=== PATIENT | male | born 1945 | race Caucasian/White ===

== ENCOUNTER 2017-01-13 17:43 | Inpatient (IN) | payer MEDICARE ==
[~2017-01-13] VITALS: Ht 177.8 cm; Wt 82.6 kg
[~2017-01-13 17:43] MED LIST: ASPI-628 PO; ATEN25TA PO; ATOR40TA69 PO; CITA20TA PO; HYDR12.5 PO; NIAC250T8 PO; NIAC500T7 PO; OMEG500C PO; OMEP-113 PO; WARF2.5T82 PO; WARF5TAB7 PO
[2017-01-13 18:02] VITALS: BP 107/61; PULSE 56; RESP 14; O2SAT 96
[2017-01-13 19:10] LABS: BASOPHILS % (AUTO) 0.8 % (0-3); MONOCYTES % (AUTO) 11.6 % (4-12); Mean Corpuscular Hemoglobin 30.9 pg (27.0-35.0); Mean Corpuscular Volume 97.8 fL (81-100); NEUTROPHILS % (AUTO) 63.3 % (40-74); Platelet Count 167 bil/L (150-400)
[2017-01-13 19:47] LABS: INR 5.55 ratio
--- NOTE | 2017-01-13 19:49 | ED.REPORT ---
HPI- Male Date of Service Jan 13, 2017 ED Provider: Bradley Rodriguez MD This is a 71-year-old male who is on warfarin for a mechanical aortic valve replacement he presents with 2-1/2 days of gross hematuria. He called the [facility] today and was advised to come to the emergency department. He reports his INRs are generally been steady, he has had no recent difficulties, he had blood drawn yesterday but does not know the results. Reports he had no adjustments on his prior blood draw in the past. He feels a little lightheaded when standing, but denies any pain, has not been passing any clots, he denies any dysuria. He reports that he did have trace hematuria he thinks about 5 years ago he saw urologist is in [place] reports a negative urology evaluation with cystoscopy at that time. He denies any other bleeding, denies any blood in the stools. He has no additional complaints. Is any recent antibiotics, medication changes, dietary changes were clear identifiable cause for an elevated INR. Nursing Notes Stated Complaint: HEMATURIA Chief Complaint: Male Abdominal Pain Nursing Notes Reviewed: Yes (BlogCN not reconciled) Allergies: Coded Allergies: codeine (Verified Allergy, Unknown, 08/01/14) can't pee Scheduled Aspirin (Aspir 81) 81 Mg Tablet. 81 MG PO DAILY Atenolol (Atenolol) 50 Mg Tablet 50 MG PO DAILY Calcium Carbonate/Vitamin D3 (Calcium 600 + Vit D Tablet) 1 Each Tablet 1 EACH PO DAILY Citalopram Hydrobromide (Celexa) 20 Mg Tablet 20 MG PO DAILY Cyanocobalamin (Vitamin B-12) (Vitamin B-12) 1,000 Mcg Tab.subl 1,000 MCG SL DAILY Doxylamine Succinate (Unisom) 25 Mg Tablet 75 MG PO HS Isosorbide MN ER (Isosorbide MN ER) 30 Mg Tab.er.24h 30 MG PO DAILY Multivitamin with Minerals (Totalday Multiple) 1 Each Tablet.er 1 EACH PO DAILY Niacin (Niacin) 500 Mg Tablet 750 MG PO HS Bock-3 Fatty Acids (Fish Oil) 500 Mg Capsule. 1,000 MG PO BID Omeprazole (Omeprazole) 20 Mg Capsule. 20 MG PO BID Prazosin (Prazosin) 1 Mg Capsule 3 MG PO HS Rosuvastatin Calcium (Rosuvastatin Calcium) 40 Mg Tablet 40 MG PO DAILY Warfarin Sodium (Warfarin Sodium) 5 Mg Tablet 5 MG PO Boss,Mo,,,Sa Warfarin Sodium (Warfarin Sodium) 2.5 Mg Tablet 2.5 MG PO Mon, Mon General Time Seen by MD: 19:36 Chief Complaint Other (hematuria) Hx Obtained From: Patient Arrived By: Walk-in Onset Occurred: 1 day ago Symptom Duration: Since onset Recent Healthcare: Recent doctor visit Similar Sx Previous: Yes Past Medical History Past Medical History Notes: See medication list provided by the [place] Past Medical History Mechanical aortic valve on warfarin Reports: Coronary artery disease, GERD, Hyperlipidemia, Hypertension, Peptic ulcer disease Past Surgical History mechanical aortic valve Five-vessel bypass Prior cystoscopy years ago Reports: CABG Smoking History Unknown if Ever Smoker Social History Alcohol Use: Denies alcohol use Drug Use: Denies drug use Ambulatory Status Independent Review of Systems GI: Denies: Hematochezia Male: Reports Hematuria, Denies Dysuria Complete sys rev & neg: except as marked. Neurologic: Reports: Lightheaded Physical Exam Initial Vital Signs Vital Signs (First) Date Time Temp Pulse Resp B/P Pulse Ox O2 Delivery O2 Flow Rate FiO2 01/13/17 18:02 36.8 56 14 107/61 96 Room Air Initial VS: Reviewed Head / Eyes: Atraumatic, Normocephalic, PERRL ENT: Mucous membranes moist, Conjunctiva normal, No scleral icterus Neck: Supple, Non-tender, Full range of motion Respiratory: Breath sounds normal, Clear to auscultation, No respiratory distress Abdomen / GI: Soft, Non-tender, No guarding, No rebound, No distention Back: No CVA tenderness Extremities: Vascular intact, Neuro intact, No swelling, No tenderness Skin: Warm, Dry, No cyanosis Neurologic: Alert, Oriented, Nonfocal Psychiatric: Mood/affect normal, Behavior normal, Normal thought content Male Genitourinary: Atraumatic, Inspection NL General/Constitutional: Awake, Alert, No acute distress, Well appearing, Well developed not pale Cardiovascular: Heart rate NL, Regular rhythm, Heart sounds NL, No gallop, No rubs Heart Sounds / Murmur: Positive: Murmur present... (mechanical) Lower Ext Edema: Negative: Bilateral 1+ mechanical murmur not tachycardic Interpretation & Diagnostics Lab Results Interpretation Result Diagram: 01/13/17184401/13/171844 Test 01/13/17 18:45 01/13/17 19:10 White Blood Count 5.0th/mm3 (3.8-10.1) Red Blood Count 4.04mil/mm3 (4.40-5.80) Hemoglobin 12.5g/dL (13.8-17.2) Hematocrit 39.5% (41.0-50.0) Mean Corpuscular Volume 97.8fL (81-100) Mean Corpuscular Hemoglobin 30.9pg (27.0-35.0) Mean Corpuscular Hemoglobin Concent 31.6% (32.0-37.0) Red Cell Distribution Width 13.9% (12.3-15.4) Platelet Count 167bil/L (150-400) Neutrophils (%) (Auto) 63.3% (40-74) Lymphocytes (%) (Auto) 20.1% (14-46) Monocytes (%) (Auto) 11.6% (4-12) Eosinophils (%) (Auto) 4.0% (0-5) Basophils (%) (Auto) 0.8% (0-3) Prothrombin Time 61.5sec (8.1-12.5) Prothromb Time International Ratio 5.55ratio Sodium Level 140mEq/L (134-144) Potassium Level 4.7mEq/L (3.5-5.2) Chloride Level 102mEq/L (97-108) Carbon Dioxide Level 28mmol/L (18-29) Blood Urea Nitrogen 13mg/dL (8-27) Creatinine 0.89mg/dL (0.76-1.27) Estimat Glomerular Filtration Rate 89mL/min (>59) Glucose Level 107mg/dL (60-99) Calcium Level 8.4mg/dL (8.5-10.1) Total Bilirubin 0.4mg/dL (0.0-1.2) Aspartate Amino Transf (AST/SGOT) 27U/L (0-50) Alanine Aminotransferase (ALT/SGPT) 10U/L (0-44) Alkaline Phosphatase 69U/L (25-160) Total Protein 6.9g/dL (6.4-8.4) Albumin 3.9g/dL (3.4-5.0) Urine Color Bloody (YELLOW) Urine Appearance Cloudy (CLEAR,HAZY) Urine pH (5.0-8.0) Urine Specific [place] 1.025 (1.003-1.035) Urine Protein mg/dL (NEG,TRACE) Urine Glucose (UA) mg/dL (NEGATIVE) Urine Ketones mg/dL (NEGATIVE) Urine Occult Blood (NEGATIVE) Urine Nitrite (NEGATIVE) Urine Bilirubin (NEGATIVE) Urine Urobilinogen mg/dL (NORMAL) Urine Leukocyte Esterase (NEGATIVE) Urine RBC Packed/hpf (0-2) Urine WBC 0-5/hpf (0-5) Urine Epithelial Cells Occasional/hpf (NONE-MOD) Urine Crystals None seen (NONE SEEN) Urine Bacteria None/hpf (NONE-FEW) Urine Hyaline Casts None/lpf (NONE) Urine Granular Casts None seen (NONE SEEN) Urine Waxy Casts None seen (NONE SEEN) Urine Red Blood Cell Casts None seen (NONE SEEN) Urine White Blood Cell Casts None seen (NONE SEEN) Urine Mucus None seen (None Seen) Urine Trichomonas None seen (NONE SEEN) Urine Yeast None (NONE SEEN) Urinalysis Comment Color interference Urine Culture Reflexed Not indicated Lab Results Interpretation: CBC Normal CMP normal INR Supratherapeutic Re-Eval/Medical Decision Med Decision/Clinical Course This is a 71-year-old male on warfarin for a mechanical valve who presents with a half days of ongoing gross hematuria. This was referred in by the [facility]. He reports that many years ago he underwent cystoscopy for hematuria with no pathology identified. He reports his INRs are generally been quite stable and reports no medication changes are clear reasons to suspect them out from abnormal range of INR. He has not taken today's evening dose of 2.5 mg. He also normally takes aspirin 81 mg twice a day, has not taken in the past day or 2. He reports feeling slightly dizzy at times, reports very mild. He is not actually mechanically orthostatic by vital sign criteria. He appears well, he has no pallor, he has mechanical burn, his abdomen is soft nontender. He does have gross hematuria, but is not passing clots and reports no difficulty urinating. Blood work is notable for normal hematocrit, but a supratherapeutic INR. The patient I will again does have a mechanical valve necessitating careful management he requires ongoing anticoagulation due to his high risk. Therefore formally consult pharmacy for their recommendations and assistance, please see their suggestions regarding the use of low-dose vitamin K and careful monitoring I consult urology Dr. Mckenzie who will follow the patient, and he requested when possible to obtain a CT IV P, which was done, with no cause of hematuria identified. The patient's been typed and crossed, but is not require emergent transfusion at this time. Given his anticoagulated status, and need for careful monitoring given the mechanical valve he is being admitted. The case is discussed with the hospitalist. Source of Hx: Old records Consultation : Consulted With: Urology (Dr. 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 I, Dr. Rodriguez, personally performed the history, physical exam, and medical decision-making: I reviewed and confirmed the accuracy for the information in the transcribed note. Signed by: fabiola Butts, 01/13/17 2100 copies to: Nino Rivera MD, Matthew F MD Jan 13, 2017 19:49 LATRICIA PADILLA Jan 13, 2017 20:27
[2017-01-13 21:05] VITALS: RESP 18; O2SAT 97
[2017-01-13 21:05] LABS: APPEARANCE,URINE CLOUDY (CLEAR,HAZY); COLOR,URINE BLOODY (YELLOW)
[2017-01-13] MEDS ORDERED: ROSU40TA20 PO (21:13)
[2017-01-13] MEDS ORDERED: ATEN50TA PO (21:13)
[2017-01-13] MEDS ORDERED: ISOS30TA4 PO (21:13)
[2017-01-13] MEDS ORDERED: PRAZ1CAP2 PO (21:13)
[2017-01-13] MEDS ORDERED: OMEP20CA11 PO (21:14)
[2017-01-13] MEDS ORDERED: MULT-620 PO (21:18)
[2017-01-13] MEDS ORDERED: CALC-243 PO (21:18)
[2017-01-13] MEDS ORDERED: CYAN100017 SL (21:18)
[2017-01-13] MEDS ORDERED: DOXY25TA46 PO (21:18)
--- NOTE | 2017-01-13 21:19 | DRSVH ---
PROCEDURE: CT ABDOMEN PELVIS W&WO CONTRAST IVP PROTOCOL INDICATIONS: Gross hematuria, requested by Dr. Mckenzie TECHNIQUE: Optional 5 mm thick noncontrast images acquired from the diaphragm to the symphysis pubis. After the administration of intravenous contrast, 5 mm thick images acquired from the diaphragm to the symphys is pubis after a 10-minute delay. 2 mm thick coronal and sagittal reformats were then performed of t he kidneys and ureters. For radiation dose reduction, the following was used: automated exposure co ntrol, adjustment of mA and/or kV according to patient size. COMPARISON: [facility], CT, ABDOMEN W AND WO PELVIS W, 12/31/2008, 10:08. FINDINGS: Image quality: Excellent. Lung bases: 3 mm nodule is present along the right major fissure on series 4 image 3 and is unchanged from 12/31/08 Urinary system: Both kidneys are atrophic, without hydronephrosis or nephrolithiasis on pre-contrast images. No perinephric fat stranding. There is normal bilateral renal enhancement. The previous 79 mm left renal cyst has decreased in size, currently measuring 21 mm. Additional superior left renal pole cyst is noted. Renal calyces appear normal in morphology when filled with contrast. Opacified p ortions of both ureters demonstrate normal caliber. Bladder wall thickness is normal. No calcified bladder stones. Other solid organs: Liver and spleen are normal in size and enhancement. Gallbladder is unremarkabl e. Biliary system is non dilated. Pancreas enhances normally. No adrenal nodules. Peritoneum and bowel: Bowel loops demonstrate normal wall thickness and caliber. No free fluid or a ir. Nodes and vessels: No retroperitoneal or mesenteric adenopathy by size criteria. Aorta and inferior vena cava are normal in size. Abdominal wall: No ventral hernias. Pelvis: No pathologic free pelvic fluid. No inguinal hernias or adenopathy. Bones: No suspicious bony lesions. No vertebral body compression fractures. Thoracolumbar fixation rods are present. IMPRESSION: 1. No visualized stones or other gross causes of hematuria. Dictated by: Caroline Allen M.D. on 01/13/2017 at 21:13 Approved by: Caroline Allen M.D. on 01/13/2017 at 21:17
[2017-01-13] MEDS ORDERED: Ondansetron 2 mg/mL 2 mL Inj IVPUSH PRN (22:05)
[2017-01-13] MEDS ORDERED: Polyethylene Glycol (PEG) 17 Gm Powder PO PRN (22:05)
[2017-01-13] MEDS ORDERED: Alum-Mag Hydrox-Simeth 30 mL Suspension PO PRN (22:05)
[2017-01-13 23:07] VITALS: BP 110/56; PULSE 53; RESP 20; O2SAT 94
[2017-01-13 23:12] VITALS: BP 95/55; PULSE 55; RESP 20; O2SAT 95
--- NOTE | 2017-01-13 23:15 | NUR ---
Admit Note Pt. arrived on floor around 2300. Pt. is alert and oriented x3. Son present in room. Pt.'s peripheral IV is patent and intact. Will continue to monitor.
[2017-01-14] VITALS (7 sets, daily range): BP systolic 104–115; BP diastolic 60–67; PULSE 51–100; RESP 16–18; O2SAT 94–97
--- NOTE | 2017-01-14 03:36 | PCM.HPMED ---
Subjective Date of Service Jan 13, 2017 Primary Provider: Admitting Physician: Shaneka Howe DO Primary Care Physician: Nino Rivera MD Attending Physician: Shaneka Howe DO Chief Complaint: Hematuria History of Present Illness: Patient is a 71-year-old male with mechanical aortic valve, hypertension, and CAD s/p CABG presenting with hematuria. Patient reports onset of hematuria about two days ago. His PCP is at the [facility] whom he called today and recommended that patient go to the ED for further evaluation. Patient denies passing any clots, dysuria, urinary frequency or flank pain. Patient states he had an episode of hematuria about five years ago and underwent a cystoscopy that was unrevealing. He states that episode of hematuria resolved spontaneously. INR in the ED was 5.55. Patient states his INR had been stable in the past. He denies any new medications, antibiotics, or recent changes in his diet. Dr. Nadia Mckenzie of Urology recommended IV pyelogram, which was performed but did not visualize stones or other gross causes of hematuria. At time of visit, the patient reports chronic lightheadedness but otherwise pain, fever, chills, dysuria, urinary frequency, dizziness, history of nephrolithiasis. In the ED, vitals: temp 36.8, HR 56, RR 14 satting 96% on room air, BP 107/61. CBC and CMP unremarkable. Hgb 12.5, Hct 39.5 on admit. Review of Systems: A comprehensive review of systems was conducted with the patient and found to be negative except as above in the History of Present Illness. Allergies Coded Allergies: codeine (Verified Allergy, Unknown, 08/01/14) can't pee Home Medications Atenolol 50mg daily Citalopram 20mg daily Isosorbide mononitrate 30mg daily Omeprazole 20mg BID Prazosin 3mg QHS Rosuvastatin 40mg daily Warfarin 2.5mg Tue, Fri Warfarin 5mg Mon, Wed, [place], Sat, Sun Calicum 600mg/Vit D 200u daily Vitamin B12 1000mcg daily Doxylamine 75mg QHS Fish oil daily Multivitamin daily PMH Mechanical aortic valve on warfarin Coronary artery disease GERD Hyperlipidemia Hypertension Peptic ulcer disease PTSD Depression . 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 External ears without defect. Pupils equal, round, and reactive to light. Anicteric sclerae, moist conjunctivae, and no lid lag. Oropharynx free of erythema and cobble stoning with moist mucosa. Neck: Supple. No lymphadenopathy or thyromegaly. Cardiovascular: Audible crisp mechanical valve. Regular rate and rhythm with no murmurs, rubs, or gallops appreciated Pulmonary: Clear to auscultation bilaterally with no crackles, wheezes, or rhonchi. Normal respiratory effort with no use of accessory muscles. Abdomen: Bowel tones present. Soft, nontender, nondistended. No hepatosplenomegaly or masses appreciated. Extremities: No clubbing, cyanosis, edema, or lymphadenopathy appreciated. Skin: Normal temperature, turgor, and texture; no rash, ulcers, or subcutaneous nodules appreciated. Neurological: Cranial nerves grossly intact. Psychiatric: Normal mood and affect. Alert and oriented to person, place, and time. Lab and Diagnostics Result Diagram: 01/13/170 01/13/17 1845 X-Rays, CTs and MRIs Date of Service: 01/13/172010 PROCEDURE: CT ABDOMEN PELVIS W&WO CONTRAST IVP PROTOCOL INDICATIONS: Gross hematuria, requested by Dr. Mckenzie TECHNIQUE: Optional 5 mm thick noncontrast images acquired from the diaphragm to the symphysis pubis. After the administration of intravenous contrast, 5 mm thick images acquired from the diaphragm to the symphysis pubis after a 10-minute delay. 2 mm thick coronal and sagittal reformats were then performed of the kidneys and ureters. For radiation dose reduction, the following was used: automated exposure control, adjustment of mA and/or kV according to patient size. COMPARISON: [facility], CT, ABDOMEN W AND WO PELVIS W, 12/31/2008, 10:08. FINDINGS: Image quality: Excellent. Lung bases: 3 mm nodule is present along the right major fissure on series 4 image 3 and is unchanged from 12/31/08 Urinary system: Both kidneys are atrophic, without hydronephrosis or nephrolithiasis on pre-contrast images. No perinephric fat stranding. There is normal bilateral renal enhancement. The previous 79 mm left renal cyst has decreased in size, currently measuring 21 mm. Additional superior left renal pole cyst is noted. Renal calyces appear normal in morphology when filled with contrast. Opacified portions of both ureters demonstrate normal caliber. Bladder wall thickness is normal. No calcified bladder stones. Other solid organs: Liver and spleen are normal in size and enhancement. Gallbladder is unremarkable. Biliary system is non dilated. Pancreas enhances normally. No adrenal nodules. Peritoneum and bowel: Bowel loops demonstrate normal wall thickness and caliber. No free fluid or air. Nodes and vessels: No retroperitoneal or mesenteric adenopathy by size criteria. Aorta and inferior vena cava are normal in size. Abdominal wall: No ventral hernias. Pelvis: No pathologic free pelvic fluid. No inguinal hernias or adenopathy. Bones: No suspicious bony lesions. No vertebral body compression fractures. Thoracolumbar fixation rods are present. IMPRESSION: 1. No visualized stones or other gross causes of hematuria. Dictated by: Caroline Allen M.D. on 01/13/2017 at 21:13 Approved by: Caroline Allen M.D. on 01/13/2017 at 21:17 Assessment & Plan Patient is a 71-year-old male with mechanical aortic valve, hypertension, and CAD s/p CABG presenting with hematuria. 1. Acute gross hematuria. Present on admission. Active -CT IV pyelogram did not visualize stones or other gross causes of hematuria -Hold warfarin -Recheck INR in AM -Trend H/H -Type and cross -Dr. Mckenzie of Urology following. Recommendations per Urology appreciated 2. Supratherapeutic INR, acute. Present on admission. Active -INR 5.55 -Uncertain etiology. Patient denies any recent changes to diet or medications -Holding warfarin -Recheck INR in AM 3. CAD, chronic. Present on admission -Continue home dose atenolol, isosorbide, statin 4. GERD, chronic. Present on admission -Continue home dose PPI 5. PTSD, chronic. Present on admission -Continue home prazosin 6. Depression, chronic. Present on admission -Continue home dose citalopram Patient Status: Patient is admitted under inpatient status with expected length of stay greater than 2 midnights due to severity of presenting symptoms, risk of adverse event, and complexity of treatment plan VTE Prophylaxis: Theraputic Anticoag with Warfarin Resuscitation Status: CPR: Attempt Resuscitation Attending Statement The patient was seen and examined together with house staff on 01/13/2017 and I agree with the history, exam and plan as outlined in the note above. Harjinder Mleton DO Jan 13, 2017 23:38 Shaneka Howe DO Jan 14, 2017 04:43
[2017-01-14 03:38] LABS: BASOPHILS % (AUTO) 0.6 % (0-3); EOSINOPHILS % (AUTO) 3.2 % (0-5); MONOCYTES % (AUTO) 12.3 % (4-12); Mean Corpuscular Hemoglobin 31.1 pg (27.0-35.0); Mean Corpuscular Volume 98.7 fL (81-100); NEUTROPHILS % (AUTO) 58.1 % (40-74); Platelet Count 164 bil/L (150-400)
[2017-01-14 03:58] LABS: INR 5.3 ratio
[2017-01-14] MEDS: Omega-3 Fatty Acids 1,000 mg Capsule PO SCH ×2 (07:57→21:34)
[2017-01-14] MEDS: Pantoprazole 40 mg ER24 Tablet PO SCH ×2 (07:57→16:30)
[2017-01-14] MEDS ORDERED: Isosorbide Mononitrate 30 mg ER24 Tablet PO SCH (08:30)
--- NOTE | 2017-01-14 10:27 | CONS ---
[address] [address] CONSULTATION REPORT PATIENT: CHIARA CASANOVA : 1945 MR#: [id number] ADMIT: 01/13/2017 JOB ID: [id number] DATE OF SERVICE: 01/14/2017 REASON FOR CONSULTATION: Gross hematuria. HISTORY OF PRESENT ILLNESS: The patient is a 71-year-old man who is on Coumadin anticoagulated because of a mechanical aortic valve. He noted the onset of gross painless hematuria approximately 48 hours ago. There have been no clots or irritative voiding symptoms. There has been no flank pain. The patient presented in the emergency department where an INR greater than 5 was discovered. He was admitted for control of his anticoagulation. The patient had an episode of gross hematuria approximately 10 years ago and was evaluated by Dr. Wilson in [place]. Blood work showed stable hematocrit and hemoglobin. A CT IVP was performed which apart from some renal atrophy and a large prostate reveals no other obvious abnormality. Past medical, social, family history, see admission note. PHYSICAL EXAMINATION: A fit 71-year-old in no acute distress. He is voiding lightly sanguinous urine. Blood pressure is 100/60, pulse 60, respirations 20. On examination, the chest is clear. Normal respiratory effort. Mechanical valve readily audible. Abdomen is soft and nontender. No masses. No organomegaly. No CVA tenderness. IMPRESSION AND PLAN: At this point, the only remaining desiccation necessary is a cystoscopy, and this she should wait until after his INR is in therapeutic range. I will plan on doing this as an outpatient after discharge.
--- NOTE | 2017-01-14 13:20 | PCM.PNMED ---
Subjective Date of Service Jan 14, 2017 Subjective Follow-up for gross hematuria. Patient seen and examined at bedside, medical record, x-ray and lab data reviewed. Plan of care discussed with nursing staff. He is still having hematuria but improving slowly. H&H is stable. He denied abdominal pain, nausea, vomiting, chest pain, no shortness of breath Exam Vital Signs Vital Sign - Last Date Time Temp Pulse Resp B/P Pulse Ox O2 Delivery O2 Flow Rate FiO2 01/14/17 12:44 36.5 56 18 104/62 95 Room Air Intake and Output 01/13/17 01/13/17 01/14/17 Cumulative From/Thru 15:00 23:00 07:00 01/13/17 18:02 - 01/14/17 05:39 Intake Total 120 ml 120 ml Output Total 400 ml 400 ml Balance -280 ml -280 ml Intake Oral 120 ml 120 ml Output Urine Total 400 ml 400 ml Exam General: Elderly male sitting in chair comfortably in no acute distress. HEENT sclerae anicteric Neck: No cervical lymphadenopathy, supple no JVD Chest: Normal respiratory efforts Lungs: clear bilaterally on auscultation, no crackle, no wheezing Heart: S1, S2 regular rate Abdomen: Benign. Non-tender, non-distended. No palpable mass Extremities: No edema, no cyanosis Neuro : Awake, alert and oriented 3. Grossly non focal IVs and Medications Medications Reviewed: Medications were reviewed in detail Lab and Diagnostics Result Diagram: 01/14/17 0453 01/14/17 0315 X-Rays, CTs and MRIs Date of Service: 01/13/172010 PROCEDURE: CT ABDOMEN PELVIS W&WO CONTRAST IVP PROTOCOL INDICATIONS: Gross hematuria, requested by Dr. Mckenzie TECHNIQUE: Optional 5 mm thick noncontrast images acquired from the diaphragm to the symphysis pubis. After the administration of intravenous contrast, 5 mm thick images acquired from the diaphragm to the symphysis pubis after a 10-minute delay. 2 mm thick coronal and sagittal reformats were then performed of the kidneys and ureters. For radiation dose reduction, the following was used: automated exposure control, adjustment of mA and/or kV according to patient size. COMPARISON: [facility], CT, ABDOMEN W AND WO PELVIS W, 12/31/2008, 10:08. FINDINGS: Image quality: Excellent. Lung bases: 3 mm nodule is present along the right major fissure on series 4 image 3 and is unchanged from 12/31/08 Urinary system: Both kidneys are atrophic, without hydronephrosis or nephrolithiasis on pre-contrast images. No perinephric fat stranding. There is normal bilateral renal enhancement. The previous 79 mm left renal cyst has decreased in size, currently measuring 21 mm. Additional superior left renal pole cyst is noted. Renal calyces appear normal in morphology when filled with contrast. Opacified portions of both ureters demonstrate normal caliber. Bladder wall thickness is normal. No calcified bladder stones. Other solid organs: Liver and spleen are normal in size and enhancement. Gallbladder is unremarkable. Biliary system is non dilated. Pancreas enhances normally. No adrenal nodules. Peritoneum and bowel: Bowel loops demonstrate normal wall thickness and caliber. No free fluid or air. Nodes and vessels: No retroperitoneal or mesenteric adenopathy by size criteria. Aorta and inferior vena cava are normal in size. Abdominal wall: No ventral hernias. Pelvis: No pathologic free pelvic fluid. No inguinal hernias or adenopathy. Bones: No suspicious bony lesions. No vertebral body compression fractures. Thoracolumbar fixation rods are present. IMPRESSION: 1. No visualized stones or other gross causes of hematuria. Dictated by: Caroline Allen M.D. on 01/13/2017 at 21:13 Approved by: Caroline Allen M.D. on 01/13/2017 at 21:17 Assessment & Plan Patient is a 71-year-old male with mechanical aortic valve, hypertension, and CAD s/p CABG presenting with hematuria. 1. Acute gross hematuria. Present on admission. Active -CT IV pyelogram did not visualize stones or other gross causes of hematuria - Improving . Seen by Urology. Paitent will need cytoscopy preferably as outpatient 2. Coumadin toxicity ,acute. Present on admission. Active -INR 5.5 -warfarin on hold -Recheck INR in AM 3. CAD, chronic. Present on admission : controlled -Continue home dose atenolol, isosorbide, statin 4. GERD, chronic. Present on admission -Continue home dose PPI 5. PTSD, chronic. Present on admission -On prazosin 6. Depression, chronic. Present on admission -On Citalopram Patient is clinically and clinically stable. He still having hematuria but less. Patient is a stable. Continue to monitor as an patient closely. Repeat INR and CBC in the morning. Seen by urology. Recommendation is for his endoscopy preferably as outpatient. Discharge anticipated within 24-48 hours VTE Prophylaxis: Theraputic Anticoag with Warfarin Resuscitation Status: CPR: Attempt Resuscitation Time spent 25 minutes Hugo Oliver MD Jan 14, 2017 13:20
--- NOTE | 2017-01-14 14:37 | NUR ---
Social work Note - Initial assessment Michael Mares is a 71 yr old admitted for gross hematuria, high INR. EMR reviewed: Pt has [employer] medicare and [employer] insurance. His PCP is at the [facility]. Readmit not available, No custodial care insurance. See attached CM initial assessment. IT SOLUTIONS SALES CONSULTANT met with pt - introduced d/c planning and explained SW role. Pt lives at home with his in [place]. His son and DIL live on the same property. His Son Wong is DPOA. Paperwork in EMR. Pt states he is independent at baseline, no DME, drives. He anticipates that he will be able to go home with no needs when medically stable. [employer] SALES CONSULTANT will follow if needs arise. Plan: home with in [facility] [place] Addendum: 01/14/17 at 1440 by ARANZA REAL SS Amended: Links added.
[2017-01-15] VITALS (7 sets, daily range): BP systolic 91–123; BP diastolic 54–68; PULSE 53–80; RESP 16–18; O2SAT 92–96
--- NOTE | 2017-01-15 05:49 | NUR ---
Hematuria Patient's urine remains a dark red color. Patient states he is in now pain. Resting comfortably in bed. Patient up independent to bathroom. Urine saved on shelf in bathroom for urology to view. Patient on Tele, sinus yadi 50-60 bpm.
[2017-01-15 06:51] LABS: BASOPHILS % (AUTO) 0.7 % (0-3); EOSINOPHILS % (AUTO) 3.6 % (0-5); MONOCYTES % (AUTO) 11.3 % (4-12); Mean Corpuscular Hemoglobin 31.4 pg (27.0-35.0); Mean Corpuscular Volume 97.8 fL (81-100); NEUTROPHILS % (AUTO) 64.2 % (40-74); Platelet Count 161 bil/L (150-400)
[2017-01-15 06:56] LABS: INR 3.79 ratio
--- NOTE | 2017-01-15 09:15 | PCM.PNMED ---
Subjective Date of Service Jan 15, 2017 Subjective Follow-up follow Coumadin toxicity and hematuria. This incident examined bedside. He said having cass hematuria. H&H remained stable. No abdominal pain, no pelvic pain, no hemoptysis, no melena Exam Vital Signs Vital Sign - Last Date Time Temp Pulse Resp B/P Pulse Ox O2 Delivery O2 Flow Rate FiO2 01/15/17 08:08 36.5 56 16 122/61 92 Room Air Intake and Output 01/14/17 01/14/17 01/15/17 Cumulative From/Thru 15:00 23:00 07:00 01/13/17 18:02 - 01/15/17 06:27 Intake Total 1072 ml 400 ml 1592 ml Output Total 1600 ml 1125 ml 3125 ml Balance -528 ml -725 ml -1533 ml Intake Oral 1072 ml 400 ml 1592 ml Output Urine Total 1600 ml 1125 ml 3125 ml Exam General: No acute distress. In bed comfortably HEENT sclerae anicteric. Neck: Supple, no JVD Chest: Normal respiratory efforts, Lungs: clear bilaterally on auscultation, no crackle, no wheezing Heart: S1, S2 regular rate and rhythm, no gallop Abdomen: Benign. Non-tender, non-distended. No palpable mass Extremities: No edema, no cyanosis, tenderness Neuro : Grossly intact IVs and Medications Medications Reviewed: Medications were reviewed in detail Lab and Diagnostics Result Diagram: 01/15/17 0602 01/14/17 0315 X-Rays, CTs and MRIs Date of Service: 01/13/172010 PROCEDURE: CT ABDOMEN PELVIS W&WO CONTRAST IVP PROTOCOL INDICATIONS: Gross hematuria, requested by Dr. Mckenzie TECHNIQUE: Optional 5 mm thick noncontrast images acquired from the diaphragm to the symphysis pubis. After the administration of intravenous contrast, 5 mm thick images acquired from the diaphragm to the symphysis pubis after a 10-minute delay. 2 mm thick coronal and sagittal reformats were then performed of the kidneys and ureters. For radiation dose reduction, the following was used: automated exposure control, adjustment of mA and/or kV according to patient size. COMPARISON: [facility], CT, ABDOMEN W AND WO PELVIS W, 12/31/2008, 10:08. FINDINGS: Image quality: Excellent. Lung bases: 3 mm nodule is present along the right major fissure on series 4 image 3 and is unchanged from 12/31/08 Urinary system: Both kidneys are atrophic, without hydronephrosis or nephrolithiasis on pre-contrast images. No perinephric fat stranding. There is normal bilateral renal enhancement. The previous 79 mm left renal cyst has decreased in size, currently measuring 21 mm. Additional superior left renal pole cyst is noted. Renal calyces appear normal in morphology when filled with contrast. Opacified portions of both ureters demonstrate normal caliber. Bladder wall thickness is normal. No calcified bladder stones. Other solid organs: Liver and spleen are normal in size and enhancement. Gallbladder is unremarkable. Biliary system is non dilated. Pancreas enhances normally. No adrenal nodules. Peritoneum and bowel: Bowel loops demonstrate normal wall thickness and caliber. No free fluid or air. Nodes and vessels: No retroperitoneal or mesenteric adenopathy by size criteria. Aorta and inferior vena cava are normal in size. Abdominal wall: No ventral hernias. Pelvis: No pathologic free pelvic fluid. No inguinal hernias or adenopathy. Bones: No suspicious bony lesions. No vertebral body compression fractures. Thoracolumbar fixation rods are present. IMPRESSION: 1. No visualized stones or other gross causes of hematuria. Dictated by: Caroline Allen M.D. on 01/13/2017 at 21:13 Approved by: Caroline Allen M.D. on 01/13/2017 at 21:17 Assessment & Plan Patient is a 71-year-old male with mechanical aortic valve, hypertension, and CAD s/p CABG presenting with hematuria. 1. Acute gross hematuria. Present on admission. Active -CT IV pyelogram did not visualize stones or other gross causes of hematuria - Seen by Urology. Paitent will need cytoscopy preferably as outpatient -. INR is not supratherapeutic level 3.7 Patient still have hematuria and passing clots. Patient is a stable. -. We want to still avoid reversal of anticoagulation in this patient with mechanical prosthetic valve. - H&H stable. Continue close monitoring. Repeat INR in a.m. I expect his hematuria to improve once INR is between 2-3. - Patient can resume Coumadin at that point and be discharged home and follow- up as outpatient with urology for cystoscopy 2. Coumadin toxicity ,acute. Present on admission. Active -INR 3.7 -warfarin on hold -Recheck INR in AM 3. CAD, chronic. Present on admission : controlled -Continue home dose atenolol, isosorbide, statin 4. GERD, chronic. Present on admission -Continue home dose PPI 5. PTSD, chronic. Present on admission -On prazosin 6. Depression, chronic. Present on admission -On Citalopram Anterior still lingering. Degenerative stable Continue to monitor as an inpatient closely. Repeat INR and CBC in the morning. Start IV hydration with normal saline at 75 mm per hour x one bag of 1000 mL Seen by urology. Recommendation is for his endoscopy preferably as outpatient. Discharge anticipated within 24-48 hours VTE Prophylaxis: Theraputic Anticoag with Warfarin Resuscitation Status: CPR: Attempt Resuscitation Time spent 25 minutes Hugo Oliver MD Jan 15, 2017 09:15
[2017-01-15] MEDS: Pantoprazole 40 mg ER24 Tablet PO SCH ×2 (10:02→17:45)
[2017-01-15] MEDS: 0.9% Sodium Chloride 1,000 ML IV SCH ×2 (10:02→22:30)
[2017-01-15] MEDS: Omega-3 Fatty Acids 1,000 mg Capsule PO SCH ×2 (10:02→21:09)
--- NOTE | 2017-01-15 15:25 | NUR ---
LISA Signed BI Dozier
--- NOTE | 2017-01-15 15:26 | NUR ---
Social Work Note: Continued Discharge Planning Data& Assessment: SW met with pt at bedside to assess for any unmet needs and confirm discharge plan. Pt is currently a SBA in his room. Pt confirmed that the plan is still for him to return home when medically ready. Per MD in morning rounds, pt may not be medically ready for discharge for another 2-3 days depending on how quickly pt medically improves. Pt denies any other needs at this time. SW to continue to follow if any needs arise. Plan: Anticipated discharge home via POV when medically ready. Pt denies any other needs at this time. SW to continue to follow if any needs arise. BI Dozier
--- NOTE | 2017-01-15 18:28 | NUR ---
Activity Pt still having hematuria, but states no clot this PM. Pt has no c/o pain during shift. VSS, GREEN, A&O x 3. Pt able to ambulate safely in room and make 3 laps in hallway. Pt on RA. One time bag of NS infusing at 75.
[2017-01-16 00:35] VITALS: BP 100/58; PULSE 59; RESP 16; O2SAT 93
--- NOTE | 2017-01-16 04:23 | NUR ---
Hematuria Patient's urine appears slightly less blood tinged this shift. No noticable clots. Still red, but debt counselor in color.Patient states he has no pain. Slept the majority of the night. Patient A&OX3. Room air.
[2017-01-16 05:10] VITALS: BP 101/63; PULSE 51; RESP 16; O2SAT 94
[2017-01-16 07:03] LABS: BASOPHILS % (AUTO) 0.6 % (0-3); EOSINOPHILS % (AUTO) 3.7 % (0-5); MONOCYTES % (AUTO) 11.3 % (4-12); Mean Corpuscular Hemoglobin 31.6 pg (27.0-35.0); Mean Corpuscular Volume 96.2 fL (81-100); NEUTROPHILS % (AUTO) 61.4 % (40-74); Platelet Count 158 bil/L (150-400)
[2017-01-16 07:19] LABS: INR 2.64 ratio
[2017-01-16] MEDS: Pantoprazole 40 mg ER24 Tablet PO SCH (07:54)
[2017-01-16] MEDS: Omega-3 Fatty Acids 1,000 mg Capsule PO SCH (07:54)
[2017-01-16 08:55] VITALS: BP 108/72; PULSE 60; RESP 16; O2SAT 96
[2017-01-16 10:54] VITALS: PULSE 64
--- NOTE | 2017-01-16 12:53 | NUR ---
Social Work- Readiness for Discharge: Data: EMR reviewed. Pt is on day 3 of hospitalization for gross hematuria per H&P. Pt anticipated to discharge 0-1 days. SW met with pt to review discharge plan. Pt confirms no needs. Pt has to assist at home. Per RN notes, pt has been up independent in his room. No anticipated discharge needs. SW will follow if needs arise. Assessment: Pt who is independent at base. Plan: Pt to discharge home when medically stable. No anticipated discharge needs. SW will follow if needs arise. Radha Whipple LAMPS TESTER AND INSPECTOR
[2017-01-16 13:01] VITALS: BP 109/66; PULSE 82; RESP 16; O2SAT 97
[2017-01-16] MEDS ORDERED: WARF5TAB7 PO (13:07)
[2017-01-16] MEDS ORDERED: WARF2.5T82 PO (13:07)
--- NOTE | 2017-01-16 13:08 | PCM.DIMED ---
Discharge Instructions Date of Service Jan 16, 2017 Dates of Hospitalization Jan 13, 2017 at 20:51 Discharge Diagnosis Discharge Diagnosis 1. Acute gross hematuria. Present on admission. Active -CT IV pyelogram did not visualize stones or other gross causes of hematuria 2. Coumadin toxicity ,acute. Present on admission. Active -initial INR 5.5,on discharge 2.6 3. CAD, chronic. Present on admission : controlled 4.mechanical aortic valve on coumadin ,chronic 5. PTSD, chronic. Present on admission 6. Depression, chronic. Present on admission 7. GERD, chronic. Present on admission Diet Low fat, Low Sodium, Heart Healthy Activity Limited until seen by PCP Call your provider Fever or Chills, Shortness of breath, Bleeding, Chest pain, Vomitting, Excessive diarrhea, Weakness (unilateral), Other (worsening of hematuria) Patient Instructions You were hospitalized due to hematurai( blood in urine ) . Your INR was 5.5 .Bleeding is improving with INR normalizing to target. Your current INR is 2.6. We have lowered you warfarin dose to 2.5 mg 4 days a week and 5 mg 3 days a week on alternating days .start with 2.5 mg tonight 01/16/17. Please call urologist Dr Mckenzie to schedule cystoscopy in 1-2 weeks.Please follow up with PCP closely . Follow-up plan please follow up with PCP in 3-5 days.Please follow up INR with PCP 2 times a week until cyctoscopy is done and optimal coumadin dose is determined by your PCP. Follow-up Provider: Nino Rivera MD Follow-up with PCP in: 1 week Provider: Nadia Mckenzie MD Follow-up in: 1 week Edis Eddy MD Jan 16, 2017 13:08
--- NOTE | 2017-01-16 13:43 | NUR ---
Social Work- Discharge: Data: EMR reviewed. Pt is on day 3 of hospitalization for gross hematuria per H&P. Pt to discharge today. Pt confirms no needs. Pt has to assist at home. Per RN notes, pt has been up independent in his room. No discharge needs. Assessment: Pt who is independent at base. Plan: Pt to discharge home. No anticipated discharge needs. Radha Whipple MSW
--- NOTE | 2017-01-16 14:07 | PCM.DC.MED ---
Discharge Summary Date of Service Jan 16, 2017 Dates of Hospitalization Date of Hospital Admission Jan 13, 2017 at 20:51 Date of Discharge: Jan 16, 2017 Providers: Admitting Physician: Shaneka Howe DO Primary Care Physician: Whitney Villarreal MD Attending Physician: Shaneka Howe DO Diagnosis at Time of Discharge Diagnosis at Time of Discharge 1. Acute gross hematuria. Present on admission. Active -CT IV pyelogram did not visualize stones or other gross causes of hematuria 2. Coumadin toxicity ,acute. Present on admission. Active -initial INR 5.5,on discharge 2.6 3. CAD, chronic. Present on admission : controlled 4.mechanical aortic valve on coumadin ,chronic 5. PTSD, chronic. Present on admission 6. Depression, chronic. Present on admission 7. GERD, chronic. Present on admission Consultations urology Dr Mckenzie Procedures XRay, CTs & MRIs Date of Service: 01/13/172010 PROCEDURE: CT ABDOMEN PELVIS W&WO CONTRAST IVP PROTOCOL INDICATIONS: Gross hematuria, requested by Dr. Mckenzie TECHNIQUE: Optional 5 mm thick noncontrast images acquired from the diaphragm to the symphysis pubis. After the administration of intravenous contrast, 5 mm thick images acquired from the diaphragm to the symphysis pubis after a 10-minute delay. 2 mm thick coronal and sagittal reformats were then performed of the kidneys and ureters. For radiation dose reduction, the following was used: automated exposure control, adjustment of mA and/or kV according to patient size. COMPARISON: [facility], CT, ABDOMEN W AND WO PELVIS W, 12/31/2008, 10:08. FINDINGS: Image quality: Excellent. Lung bases: 3 mm nodule is present along the right major fissure on series 4 image 3 and is unchanged from 12/31/08 Urinary system: Both kidneys are atrophic, without hydronephrosis or nephrolithiasis on pre-contrast images. No perinephric fat stranding. There is normal bilateral renal enhancement. The previous 79 mm left renal cyst has decreased in size, currently measuring 21 mm. Additional superior left renal pole cyst is noted. Renal calyces appear normal in morphology when filled with contrast. Opacified portions of both ureters demonstrate normal caliber. Bladder wall thickness is normal. No calcified bladder stones. Other solid organs: Liver and spleen are normal in size and enhancement. Gallbladder is unremarkable. Biliary system is non dilated. Pancreas enhances normally. No adrenal nodules. Peritoneum and bowel: Bowel loops demonstrate normal wall thickness and caliber. No free fluid or air. Nodes and vessels: No retroperitoneal or mesenteric adenopathy by size criteria. Aorta and inferior vena cava are normal in size. Abdominal wall: No ventral hernias. Pelvis: No pathologic free pelvic fluid. No inguinal hernias or adenopathy. Bones: No suspicious bony lesions. No vertebral body compression fractures. Thoracolumbar fixation rods are present. IMPRESSION: 1. No visualized stones or other gross causes of hematuria. Dictated by: Caroline Allen M.D. on 01/13/2017 at 21:13 Approved by: Caroline Allen M.D. on 01/13/2017 at 21:17 Brief History Patient is a 71-year-old male with mechanical aortic valve, hypertension, and CAD s/p CABG presenting with hematuria. Patient reports onset of hematuria about two days ago. [facility] PCP is at the [facility] whom he called today and recommended that patient go to the ED for further evaluation. Patient denies passing any clots, dysuria, urinary frequency or flank pain. Patient states he had an episode of hematuria about five years ago and underwent a cystoscopy that was unrevealing. He states that episode of hematuria resolved spontaneously. INR in the ED was 5.55. Patient states his INR had been stable in the past. He denies any new medications, antibiotics, or recent changes in his diet. Dr. Nadia Mckenzie of Urology recommended IV pyelogram, which was performed but did not visualize stones or other gross causes of hematuria. At time of visit, the patient reports chronic lightheadedness but otherwise pain, fever, chills, dysuria, urinary frequency, dizziness, history of nephrolithiasis. In the ED, vitals: temp 36.8, HR 56, RR 14 satting 96% on room air, BP 107/61. CBC and CMP unremarkable. Hgb 12.5, Hct 39.5 on admit. Hospital Course Patient is a 71-year-old male with mechanical aortic valve, hypertension, and CAD s/p CABG presenting with hematuria. #. Acute gross hematuria. Present on admission. Active -CT IV pyelogram did not visualize stones or other gross causes of hematuria - Seen by Urology. Paitent will need cytoscopy preferably as outpatient -Hematuria clearing. INR therapeutic. -Follow-up with Dr. Mckenzie for cystoscopy in 1-2 weeks. #. Coumadin toxicity ,acute. Present on admission. Active -Initial INR 5.5. INR now 2.7 -We will resume Coumadin tonight. Discussed with pharmacy. Will discharge on 2.5 mg Monday, Monday, Monday, Monday. 5 mg on Monday -Follow-up INR 2 times a week for the next few weeks until optimal dose is determined by PCP. -Follow-up with Dr. Mckenzie for cystoscopy in 1-2 weeks. # Aortic mechanical valve, chronic -We will try to keep INR around 2.5 until cystoscopies completed #. CAD, chronic. Present on admission : controlled -Continue home dose atenolol, isosorbide, statin #. GERD, chronic. Present on admission -Continue home dose PPI #. PTSD, chronic. Present on admission -On prazosin #. Depression, chronic. Present on admission -On Citalopram Seen by urology. Recommendation is for his cystoscopy preferably as outpatient. Discharge home Condition on discharge stable Exam Vital Signs (Last) Date Time Temp Pulse Resp B/P Pulse Ox O2 Delivery O2 Flow Rate FiO2 01/16/17 13:01 36.8 82 16 109/66 97 Room Air Exam General: No acute distress. In bed comfortably HEENT sclerae anicteric. Neck: Supple, no JVD Chest: Normal respiratory efforts, Lungs: clear bilaterally on auscultation, no crackle, no wheezing Heart: S1, S2 regular rate and rhythm, no gallop Abdomen: Benign. Non-tender, non-distended. No palpable mass Extremities: No edema, no cyanosis, tenderness Neuro : Grossly intact Test 01/13/17 18:45 01/13/17 19:10 01/14/17 03:15 01/16/17 06:43 Total Bilirubin 0.4mg/dL (0.0-1.2) Aspartate Amino Transf (AST/SGOT) 27U/L (0-50) Alanine Aminotransferase (ALT/SGPT) 10U/L (0-44) Alkaline Phosphatase 69U/L (25-160) Total Protein 6.9g/dL (6.4-8.4) Albumin 3.9g/dL (3.4-5.0) Urine Color Bloody (YELLOW) Urine Appearance Cloudy (CLEAR,HAZY) Urine pH (5.0-8.0) Urine Specific [place] 1.025 (1.003-1.035) Urine Protein mg/dL (NEG,TRACE) Urine Glucose (UA) mg/dL (NEGATIVE) Urine Ketones mg/dL (NEGATIVE) Urine Occult Blood (NEGATIVE) Urine Nitrite (NEGATIVE) Urine Bilirubin (NEGATIVE) Urine Urobilinogen mg/dL (NORMAL) Urine Leukocyte Esterase (NEGATIVE) Urine RBC Packed/hpf (0-2) Urine WBC 0-5/hpf (0-5) Urine Epithelial Cells Occasional/hpf (NONE-MOD) Urine Crystals None seen (NONE SEEN) Urine Bacteria None/hpf (NONE-FEW) Urine Hyaline Casts None/lpf (NONE) Urine Granular Casts None seen (NONE SEEN) Urine Waxy Casts None seen (NONE SEEN) Urine Red Blood Cell Casts None seen (NONE SEEN) Urine White Blood Cell Casts None seen (NONE SEEN) Urine Mucus None seen (None Seen) Urine Trichomonas None seen (NONE SEEN) Urine Yeast None (NONE SEEN) Urinalysis Comment Color interference Urine Culture Reflexed Not indicated Sodium Level 140mEq/L (134-144) Potassium Level 3.9mEq/L (3.5-5.2) Chloride Level 103mEq/L (97-108) Carbon Dioxide Level 29mmol/L (18-29) Blood Urea Nitrogen 13mg/dL (8-27) Creatinine 0.89mg/dL (0.76-1.27) Estimat Glomerular Filtration Rate 89mL/min (>59) Glucose Level 106mg/dL (60-99) Calcium Level 8.3mg/dL (8.5-10.1) White Blood Count 5.4th/mm3 (3.8-10.1) Red Blood Count 4.18mil/mm3 (4.40-5.80) Hemoglobin 13.2g/dL (13.8-17.2) Hematocrit 40.2% (41.0-50.0) Mean Corpuscular Volume 96.2fL (81-100) Mean Corpuscular Hemoglobin 31.6pg (27.0-35.0) Mean Corpuscular Hemoglobin Concent 32.8% (32.0-37.0) Red Cell Distribution Width 13.5% (12.3-15.4) Platelet Count 158bil/L (150-400) Neutrophils (%) (Auto) 61.4% (40-74) Lymphocytes (%) (Auto) 23.0% (14-46) Monocytes (%) (Auto) 11.3% (4-12) Eosinophils (%) (Auto) 3.7% (0-5) Basophils (%) (Auto) 0.6% (0-3) Prothrombin Time 28.8sec (8.1-12.5) Prothromb Time International Ratio 2.64ratio Discharge Medications Discharge Medications Aspirin (Aspir 81) 81 Mg Tablet.dr 81 MG PO DAILY (Reported) Atenolol (Atenolol) 50 Mg Tablet 50 MG PO DAILY (Reported) Calcium Carbonate/Vitamin D3 (Calcium 600 + Vit D Tablet) 1 Each Tablet 1 EACH PO DAILY (Reported) Citalopram Hydrobromide (Celexa) 20 Mg Tablet 20 MG PO DAILY Prescribed by: KATHY AVILA MD Cyanocobalamin (Vitamin B-12) (Vitamin B-12) 1,000 Mcg Tab.subl 1,000 MCG SL DAILY (Reported) Doxylamine Succinate (Unisom) 25 Mg Tablet 75 MG PO HS (Reported) Isosorbide MN ER (Isosorbide MN ER) 30 Mg Tab.er.24h 30 MG PO DAILY (Reported) Multivitamin with Minerals (Totalday Multiple) 1 Each Tablet.er 1 EACH PO DAILY (Reported) Niacin (Niacin) 500 Mg Tablet 750 MG PO HS (Reported) [place]-3 Fatty Acids (Fish Oil) 500 Mg Capsule.dr 1,000 MG PO BID (Reported) Omeprazole (Omeprazole) 20 Mg Capsule.dr 20 MG PO BID (Reported) Prazosin (Prazosin) 1 Mg Capsule 3 MG PO HS (Reported) Rosuvastatin Calcium (Rosuvastatin Calcium) 40 Mg Tablet 40 MG PO DAILY ( Reported) Warfarin Sodium (Warfarin Sodium) 5 Mg Tablet 5 MG PO ,,Mon Prescribed by: ALEC DUFFY MD Warfarin Sodium (Warfarin Sodium) 2.5 Mg Tablet 2.5 MG PO Mon,Wed,Fri,Sun Prescribed by: ALEC DUFFY MD Followup Plan Disposition: Home Follow-up plan please follow up with PCP in 3-5 days.Please follow up INR with PCP 2 times a week until cyctoscopy is done and optimal coumadin dose is determined by your PCP. Discharge Diet: Low fat, Low Sodium, Heart Healthy Discharge Activity: Limited until seen by PCP Patient Instructions You were hospitalized due to hematurai( blood in urine ) . Your INR was 5.5 .Bleeding is improving with INR normalizing to target. Your current INR is 2.6. We have lowered you warfarin dose to 2.5 mg 4 days a week and 5 mg 3 days a week on alternating days .start with 2.5 mg tonight 01/16/17. Please call urologist Dr Mckenzie to schedule cystoscopy in 1-2 weeks.Please follow up with PCP closely . Follow-up Provider: Nino Rivera MD Follow-up with PCP in: 1 week Provider: Nadia Mckenzie MD Follow-up in: 1 week Time spent 35 minutes coordinating discharge copies to: Nino Rivera MD; Whitney Villarreal MD; Nadia Mckenzie MD, Melaku MD Jan 16, 2017 14:07
--- NOTE | 2017-01-16 14:15 | NUR ---
DISCHARGE Patient has been voiding in urinal, urine is still red but becoming manager telecom in color, more watermelon colored at discharge time. Reviewed discharge paperwork with patient, including changes to warfarin doses and frequency. Patient acknowledged and stated he has appointment with PCP, Dr. Whitney Villarreal, at [facility] here in on Monday for follow up and INR testing. Removed SL IV from right arm, catheter intact. Removed telemetry box. Patient got dressed independently and was escorted out to personal ride to go home.
== END 2017-01-16 14:03 | disposition home or self-care (01) | DRG 696 ==
LOC: SED 17:43 → OSC 20:51
PROVIDERS: ADMIT Internal Medicine; ATTEND Internal Medicine
DX: R31.0 Gross hematuria (principal); R79.1 Abnormal coagulation profile; Z95.2 Presence of prosthetic heart valve; Z79.01 Long term (current) use of anticoagulants; Z79.82 Long term (current) use of aspirin; Z95.1 Presence of aortocoronary bypass graft; I25.10 Atherosclerotic heart disease of native coronary artery without angina pectoris; K21.9 Gastro-esophageal reflux disease without esophagitis; F43.12 Post-traumatic stress disorder, chronic; F32.9 Major depressive disorder, single episode, unspecified; T45.511A Poisoning by anticoagulants, accidental (unintentional), initial encounter

== ENCOUNTER 2017-06-16 11:59 | Day surgery (SDC) | payer MEDICARE ==
[~2017-06-16] VITALS: Ht 170.2 cm; Wt 86.0 kg
[~2017-06-16 11:59] MED LIST changes: +0.9% Sodium Chloride 1,000 ML IV SCH; -ATEN25TA PO; +ATEN50TA PO; -ATOR40TA69 PO; +CALC-243 PO; +CYAN100017 SL; +DOXY25TA46 PO; -HYDR12.5 PO; +ISOS30TA4 PO; +MULT-620 PO; -NIAC250T8 PO; -OMEP-113 PO; +OMEP20CA11 PO; +PRAZ1CAP2 PO; +ROSU40TA20 PO; +Sodium Chloride LOK Flush 10 mL Syringe IV PRN; +fentaNYL-PF 50 mCg/mL 2 mL Inj IVPUSH PRN
[2017-06-16] MEDS ORDERED: Lactated Ringer's 1,000 ML IV ONE (12:47)
[2017-06-16] MEDS ORDERED: Lactated Ringer's 1,000 ML IV SCH (12:48)
[2017-06-16 12:49] VITALS: BP 125/68; PULSE 59; RESP 16; O2SAT 97
[2017-06-16] MEDS ORDERED: Ondansetron 2 mg/mL 2 mL Inj IVPUSH PRN (12:50)
[2017-06-16] MEDS ORDERED: MetoCLOpramide 5 mg/mL 2 mL Inj IVPUSH PRN (12:50)
[2017-06-16] MEDS ORDERED: ACET-2605 PO (12:54)
[2017-06-16] MEDS ORDERED: PRAZ2CAP2 PO (12:55)
--- NOTE | 2017-06-16 13:09 | PCM.HPANE ---
Patient Data Surgeon Admitting Provider: Attending Provider:Hugo Pat MD Primary Care Physician:Whitney Villarreal MD Other Provider: Reason for Visit Rectal Pain Ht/WT & BMI Height (Feet): 5 Height (Inches): 7 Weight (Kilograms): 86 Body Mass Index 29.00 Allergies Coded Allergies: codeine (Verified Allergy, Unknown, 06/16/17) can't pee Past Anesthesia History Anesthesia History: Denies:: Abnormal Airway, Anesthesia Reactions, Difficult Intubation, Malignant Hyperthermia Diabetes History Hx Diabetes?: No MRSA MRSA: No Medications Blood Thinner: Coumadin, Lovenox Last Dose Blood Thinner: Jun 15, 2017 Home Meds Incl Beta Michelle: Yes Date Beta Michelle Taken: Jun 16, 2017 Time Beta Michelle Taken: 0800 Active Scripts Warfarin Sodium 2.5 Mg Tablet2.5 Mg PO Mon,Wed,Fri,Sun #30 Prov:Edis Eddy MD 01/16/17 Warfarin Sodium 5 Mg Tablet5 Mg PO ,,Sat #30 Prov:Edis Eddy MD 01/16/17 Citalopram Hydrobromide (Celexa)20 Mg Oqngqh82 Mg PO DAILY 30 Days Prov:Hugo Rodriguez MD 08/02/14 Reported Medications Prazosin 2 Mg Capsule2 Mg PO HS 06/16/17 Acetaminophen/Diphenhydramine (Tylenol Pm Ex-Strength Caplet)500 Mg-25 Mg Tablet1 Each PO HS 06/16/17 Multivitamin with Minerals (Totalday Multiple)1 Each Tablet.er1 Each PO DAILY 01/13/17 Cyanocobalamin (Vitamin B-12) (Vitamin B-12)1,000 Mcg Tab.subl1,000 Mcg SL DAILY 01/13/17 Calcium Carbonate/Vitamin D3 (Calcium 600 + Vit D Tablet)1 Each Tablet1 Each PO DAILY 01/13/17 Omeprazole 20 Mg Capsule.dr20 Mg PO BID 01/13/17 Rosuvastatin Calcium 40 Mg Ttrwtf96 Mg PO DAILY 01/13/17 Atenolol 50 Mg Xhmllt01 Mg PO DAILY 01/13/17 [place]-3 Fatty Acids (Fish Oil)500 Mg Capsule.dr1,000 Mg PO BID 08/02/14 Discontinued Reported Medications Doxylamine Succinate (Unisom)25 Mg Ncuzbz46 Mg PO HS 01/13/17 Prazosin 1 Mg Capsule3 Mg PO HS 01/13/17 Isosorbide MN ER 30 Mg Tab.er.24h30 Mg PO DAILY 01/13/17 Niacin 500 Mg Xvawsf328 Mg PO HS 02/08/15 Aspirin (Aspir 81)81 Mg Tablet.dr81 Mg PO DAILY 08/02/14 Last Time Dose Received Took atenolol today Held coumadin x 1 week History History of ENT Problems?: Yes HEENT History: Positive for:: Cataracts (Cataract Surgery) Hearing Problem Denies:: Abnormal Airway Difficult Intubation Denture Type: None Teeth Condition: Within Normal Limits Hx of Heart Problems?: Yes Cardiovascular History: Positive for:: Hypertension Valvular Heart Disease (AVR 1999) Denies:: Cardiac Surgery (Aortic Replacement 1999, 4 bypass 1999, CABG 1999) Chest Pain Congestive Heart Failure Edema Heart Murmur Irregular Heartbeat Pacemaker Thrombophlebitis Other History/Comments CAD - s/p CABG; S/p AVR No recent CP; Greater than 4 mets; no new cardiac sx's. Hx of Respiratory Problem?: No Respiratory History: Denies:: Tuberculosis Hx Neurologic Problems?: Yes Neurological History: Positive for:: Dizziness (Lightheadness) Denies:: CVA Hx of GI Problems?: Yes Hx of Problems?: No Male Hx: Denies:: Prostate Problems Scrotal Mass Testicular Surgery Hx Musculoskeletal Problems?: Yes Musculoskeletal History: Positive for:: Back Injury (Back surgery) Hx of Psycho/Social Problems?: No Psycho Social History: Positive for:: Anxiety Hx Depression Hx Surgeries?: Yes (CABG, Back &Neck& hand surgery, 4 bypass, cataracts, and aortic replacement) Hx Any Other Health Problems?: Yes Other History: Positive for:: Cancer (Melanoma) Hospitalization History Blood Transfusions: Positive for:: Blood Transfusions Denies:: Blood Transfuse Reaction Hx Diabetes: No Hx Alcohol Use: NoHx Substance Use: No Smoking Status: Unknown if Ever Smoker Have You Smoked inLast 12 mo: No Stop/Bang Treated for Sleep Apnea?: No Do You Have a CPAP Machine?: No S-Snoring: Do You Snore Loudly: No T-Tired: feel tired, fatigued: No O-Obsered: Observed not breath: No P-Blood Pressure: treated: Yes B- Body Mass Index > 35 kg/m2: No A- Age over 50: Yes N- Neck Large Circumference: No G- Gender Male: Yes YELITZA Total Score: 3 Risk Assessment Category Category 1A: Patient has history of documented sleep apnea, and HAS NOT received any narcotic, sedative or anesthesia administration during this stay. Category 1B: Patient has history of documented sleep apnea, and HAS received any narcotic , sedative or anesthesia administration during this stay Category 2: Patient has SUSPECTED Obstructive Sleep Apnea, and HAS received any narcotic , sedative or anesthesia administration during this stay. Category 3: Patient has SUSPECTED Obstructive Sleep Apnea and HAS NOT received narcotic, sedative or anesthesia administration during this stay. Category 4: Outpatient in Procedural Areas with known sleep apnea or who screen positive for High Risk via the STOP/BANG questionnaire. Exam Exam Vital Signs Vital Signs Date Time Temp Pulse Resp B/P Pulse Ox O2 Delivery O2 Flow Rate FiO2 06/16/17 12:49 59 16 125/68 97 Room Air General Appearance: Alert, Oriented X3 HEENT/AIRWAY: MP 2, Neck Movement (FROM) Lungs: Clear to Auscultation, Clear to Percussion Heart: Exam Unremarkable, Regular Rate/Rhythm Plan Impression Patient chart reviewed, patient interviewed and anesthestic plan with risks, benefits, and alternatives discussed, and informed consent obtained. ASA Physical Status: ASA3 Severe Disease (CAD; S/p AVR) Anesthetic Plan: MAC Bene/Risks/Altern/Consents: Yes HP Complete Prior to Induction: Yes Augie Peralta MD Jun 16, 2017 13:09
[2017-06-16 13:38] VITALS: BP 118/71; PULSE 54; RESP 16; O2SAT 97
--- NOTE | 2017-06-16 13:45 | PCM.ANEP1 ---
Post Anesthesia PACU Phase 1 Assessment Vital Signs Vital Signs Date Time Temp Pulse Resp B/P Pulse Ox O2 Delivery O2 Flow Rate FiO2 06/16/17 12:49 59 16 125/68 97 Room Air Anesthetic Administered: MAC Level of Alertness: Awake, talking GREEN's with Equal Strength: Yes Pain: No Nausea or Vomiting: No CV Function & Hydration Stable: Yes Airway Device: Oxygen Delivery: Room Air Lungs: Clear to Auscultation, Clear to Percussion PACU Phase 2 Assessment Complications: No Follow up Care: No Patient Instructions Provided: N/A Comments See anesth record for PACU VS. PACU VSS Augie Peralta MD Jun 16, 2017 13:45
[2017-06-16 13:50] VITALS: BP 120/58; PULSE 65; RESP 12; O2SAT 97
--- NOTE | 2017-06-16 13:50 | ENDO ---
[address] [address] ENDOSCOPY PROCEDURE PATIENT: CHIARA CASANOVA : 1945 MR#: [id number] ADMIT: 06/16/2017 JOB ID: [id number] DATE OF SERVICE: 06/16/2017 TYPE OF OPERATION: Colonoscopy. PREOPERATIVE DIAGNOSIS(ES): Family history of colon cancer, rectal pain. POSTOPERATIVE DIAGNOSIS(ES): Small internal hemorrhoids. ANESTHESIA: Monitored anesthesia care. COMPLICATIONS: None. BLOOD LOSS: Minimal. DESCRIPTION OF PROCEDURE: After risks and benefits explained to the patient, informed consent was obtained. After anesthesia administered, colonoscope was then inserted from the rectum to cecum. Mucosa carefully examined. Prep of the patient was excellent. After procedure was done, the scope was withdrawn, procedure terminated. FINDINGS: Upon inspection of the anus, no masses, hemorrhoids, ulcers, or fissures that were seen. Throughout the entire examination, no polyps or masses seen. Retroflexion showed small internal hemorrhoids. IMPRESSION: Small internal hemorrhoids. RECOMMENDATIONS: 1. Stool softener as needed. 2. Repeat colonoscopy in five years for family history of colon cancer. 3. Follow up in GI clinic as needed.
== END 2017-06-16 23:59 | disposition home or self-care (01) ==
LOC: END 11:59
PROVIDERS: ATTEND Internal Medicine Gastroenterology
DX: K62.89 Other specified diseases of anus and rectum (principal); K64.8 Other hemorrhoids; Z80.0 Family history of malignant neoplasm of digestive organs; I10 Essential (primary) hypertension; I38 Endocarditis, valve unspecified; I25.10 Atherosclerotic heart disease of native coronary artery without angina pectoris; F41.8 Other specified anxiety disorders; Z95.1 Presence of aortocoronary bypass graft; Z79.01 Long term (current) use of anticoagulants
CPT/HCPCS: 45378; J7120

== ENCOUNTER 2017-08-18 11:40 | Observation (INO) | payer MEDICARE, OTHER ==
[~2017-08-18] VITALS: Ht 172.7 cm; Wt 81.4 kg
[~2017-08-18 11:40] MED LIST changes: -0.9% Sodium Chloride 1,000 ML IV SCH; +ACET-2605 PO; -ASPI-628 PO; -DOXY25TA46 PO; -ISOS30TA4 PO; -NIAC500T7 PO; -PRAZ1CAP2 PO; +PRAZ2CAP2 PO; -Sodium Chloride LOK Flush 10 mL Syringe IV PRN; -fentaNYL-PF 50 mCg/mL 2 mL Inj IVPUSH PRN
[2017-08-18 12:07] VITALS: BP 93/58; PULSE 57; RESP 15; O2SAT 97
[2017-08-18 12:12] LABS: BASOPHILS % (AUTO) 1.4 % (0-3); EOSINOPHILS % (AUTO) 4.8 % (0-5); MONOCYTES % (AUTO) 10.5 % (4-12); Mean Corpuscular Hemoglobin 31.3 pg (27.0-35.0); Mean Corpuscular Volume 97.3 fL (81-100); NEUTROPHILS % (AUTO) 59.3 % (40-74); Platelet Count 163 bil/L (150-400)
--- NOTE | 2017-08-18 12:27 | DRSVH ---
PROCEDURE: X-RAY CHEST ONE VIEW, PORTABLE ([id number]) INDICATIONS: CHEST PAIN TECHNIQUE: One view of the chest was acquired. COMPARISON: [facility], , CHEST 1VW (PORTABLE), 02/07/2015, 22:00. FINDINGS: Surgical changes and devices: Thoracolumbar fixation hardware is seen. Post CABG changes are seen. Lungs and pleura: An incomplete inspiratory result is noted, causing a crowded appearance to the sanaz g markings. No focal infiltrates are seen. No pneumothorax or significant pleural effusions are see n. Mediastinum: Mediastinal contours appear normal. Heart size is normal. Bones and chest wall: Age-appropriate bony degenerative changes are seen. No suspicious bony lesion s. Overlying soft tissues appear unremarkable. IMPRESSION: Limited portable chest examination, without a significant cardiopulmonary abnormality identified. As clinically appropriate, a short-term followup chest series (with PA and lateral views) performed i n deep inspiration is suggested for further evaluation. Postoperative changes are seen. Dictated by: Gene Euceda M.D. on 08/18/2017 at 12:25 Approved by: Gene Euceda M.D. on 08/18/2017 at 12:26
[2017-08-18 12:42] VITALS: BP 112/60; PULSE 57; RESP 20; O2SAT 96
[2017-08-18 12:44] LABS: TROPONIN T 0.01 ug/L (0.0-0.011)
[2017-08-18 12:55] LABS: Magnesium 1.8 mg/dL (1.6-2.6)
--- NOTE | 2017-08-18 13:00 | ED.REPORT ---
HPI-Chest Pain 40 and Over Date of Service Aug 18, 2017 ED Provider: Pritesh Marrufo MD Patient is a 71 year old male with a history of CABG, CAD, hypertension and melanoma who presents to the ED via EMS complaining of chest pain onset 1030. Associated symptoms include pain that radiates into the left side of his chest and back. The patient reports that the pain was sharp and started while doing some light exertion and resolved after 20 minutes. He states that he took two nitros after the pain began. En route, patient was given ASA. Patient presents to the ED pain free. Nursing Notes Stated Complaint: CHEST PAIN Chief Complaint: Chest Pain Nursing Notes Reviewed: Yes Allergies: Coded Allergies: codeine (Verified Allergy, Unknown, 06/16/17) can't pee Scheduled Acetaminophen/Diphenhydramine (Tylenol Pm Ex-Strength Caplet) 500 Mg-25 Mg Tablet 1 EACH PO HS Atenolol (Atenolol) 50 Mg Tablet 50 MG PO DAILY Calcium Carbonate/Vitamin D3 (Calcium 600 + Vit D Tablet) 1 Each Tablet 1 EACH PO DAILY Citalopram Hydrobromide (Celexa) 20 Mg Tablet 20 MG PO DAILY Cyanocobalamin (Vitamin B-12) (Vitamin B-12) 1,000 Mcg Tab.subl 1,000 MCG SL DAILY Multivitamin with Minerals (day Multiple) 1 Each Tablet.er 1 EACH PO DAILY [place]-3 Fatty Acids (Fish Oil) 500 Mg Capsule.dr 1,000 MG PO BID Omeprazole (Omeprazole) 20 Mg Capsule.dr 20 MG PO BID Prazosin (Prazosin) 2 Mg Capsule 2 MG PO HS Rosuvastatin Calcium (Rosuvastatin Calcium) 40 Mg Tablet 40 MG PO DAILY Warfarin Sodium (Warfarin Sodium) 5 Mg Tablet 5 MG PO ,,Mon Warfarin Sodium (Warfarin Sodium) 2.5 Mg Tablet 2.5 MG PO Mon,Wed,Fri,Sun General Time Seen by MD: 12:44 Chief Complaint Chest pain Hx Obtained From: Patient Arrived By: Ambulance Sudden in Onset?: Yes Onset Occurred: 1 - 4 hours ago Symptom Duration: 16 - 30 minutes Location: : Substernal Quality: Painful, Sharp Radiation: : Back: Neck Severity: Current: No pain currently Recent Healthcare: Recent doctor visit, Recent hospitalization Past Medical History Past Medical History Notes: See medication list provided by the [place] Past Medical History Mechanical aortic valve on warfarin Reports: Coronary artery disease, GERD, Hyperlipidemia, Hypertension, Peptic ulcer disease Past Surgical History mechanical aortic valve Five-vessel bypass Prior cystoscopy years ago Reports: CABG Smoking History Unknown if Ever Smoker Social History Alcohol Use: Denies alcohol use Drug Use: Denies drug use Ambulatory Status Independent Review of Systems Respiratory: Denies: Shortness of breath Cardiovascular: Reports: Chest pain GI: Denies: Nausea Musculoskeletal: Denies: Extremity swelling Skin: Denies Diaphoresis Complete sys rev & neg: except as marked. Physical Exam Initial Vital Signs Vital Signs (First) Date Time Temp Pulse Resp B/P Pulse Ox O2 Delivery O2 Flow Rate FiO2 08/18/17 12:07 37.0 57 15 93/58 97 Room Air Initial VS: Reviewed General/Constitutional: Awake, Alert, No acute distress Respiratory / Chest: Atraumatic, Breath sounds NL, Breath sounds = bilat, No respiratory distress Cardiovascular: Heart rate NL, Regular rhythm, Heart sounds NL Abdomen: Atraumatic, Soft, Non-tender Lower Extremity / Pelvis / MS: Atraumatic, No edema Skin: Warm, Dry Neurologic: Oriented X3, Speech NL Head / Eyes: Atraumatic, Normocephalic Interpretation & Diagnostics Lab Results Interpretation Result Diagram: 08/18/17 1209 08/18/17 1209 Test 08/18/17 12:09 White Blood Count 4.8th/mm3 (3.8-10.1) Red Blood Count 4.12mil/mm3 (4.40-5.80) Hemoglobin 12.9g/dL (13.8-17.2) Hematocrit 40.1% (41.0-50.0) Mean Corpuscular Volume 97.3fL (81-100) Mean Corpuscular Hemoglobin 31.3pg (27.0-35.0) Mean Corpuscular Hemoglobin Concent 32.2% (32.0-37.0) Red Cell Distribution Width 13.8% (12.3-15.4) Platelet Count 163bil/L (150-400) Neutrophils (%) (Auto) 59.3% (40-74) Lymphocytes (%) (Auto) 23.6% (14-46) Monocytes (%) (Auto) 10.5% (4-12) Eosinophils (%) (Auto) 4.8% (0-5) Basophils (%) (Auto) 1.4% (0-3) Sodium Level 142mEq/L (134-144) Potassium Level 4.5mEq/L (3.5-5.2) Chloride Level 106mEq/L (97-108) Carbon Dioxide Level 23mmol/L (18-29) Blood Urea Nitrogen 16mg/dL (8-27) Creatinine 0.99mg/dL (0.76-1.27) Estimat Glomerular Filtration Rate 79mL/min (>59) Glucose Level 104mg/dL (60-99) Calcium Level 8.5mg/dL (8.5-10.1) Magnesium Level 1.8mg/dL (1.6-2.6) Total Bilirubin 0.4mg/dL (0.0-1.2) Aspartate Amino Transf (AST/SGOT) 23U/L (0-50) Alanine Aminotransferase (ALT/SGPT) 12U/L (0-44) Alkaline Phosphatase 76U/L (25-160) Troponin T 0.010ug/L (0.0-0.011) Total Protein 6.7g/dL (6.4-8.4) Albumin 3.8g/dL (3.4-5.0) ECG Interpretation ECG Interpretation: ventricular premature complex nonspecific intraventricular conduction delay no acute ischemic changes Time: 12:14 Interpreted by: ED physician Normal ECG Interpretation: Normal rate (64), Normal sinus rhythm X-Ray Chest Interpretation Chest Xray Interpretation: IMPRESSION: Limited portable chest examination, without a significant cardiopulmonary abnormality identified. As clinically appropriate, a short-term followup chest series (with PA and lateral views) performed in deep inspiration is suggested for further evaluation. Postoperative changes are seen. Dictated by: Gene Euceda M.D. on 08/18/2017 at 12:25 Approved by: Gene Euceda M.D. on 08/18/2017 at 12:26 Interpretation / Wet Read by: Interpret - Radiologist Re-Eval/Medical Decision Time of Eval: 13:12 Re-Evaluation/Progress Note: Discussed labs, EKG, X-ray and plan for admit. Patient understands and agrees to plan. All questions were addressed. Consultation : Referral / Consult Name: Herminia Matamoros DO Consulted With: Hospitalist Call Returned at: 13:42 Medical Or Surgical Instrument Maker: Agrees with eval, Agrees with plan, Accepts admit Counseled Regarding: Diagnosis, Lab results, Need for admission Discharge & Departure Primary Impression: Unstable angina Disposition: ADMITTED TO HOSPITAL Discharge Condition All VS Reviewed: Yes Condition: Stable Referrals: Whitney Villarreal MD (PCP) Anyi Attestation Portions of this note were transcribed by Jenny Conde. I, Dr. Marrufo personally performed the history, physical exam and medical decision-making; I reviewed and confirmed the accuracy of the information in the transcribed note. Signed by: Anyi Kline, 08/18/17 copies to: Whitney Villarreal MD, Kirk H MD Aug 18, 2017 13:00 Codi Conde Aug 18, 2017 13:15
[2017-08-18] MEDS ORDERED: Alum-Mag Hydrox-Simeth 30 mL Suspension PO PRN (13:50)
[2017-08-18] MEDS ORDERED: Ondansetron 2 mg/mL 2 mL Inj IVPUSH PRN (13:50)
[2017-08-18] MEDS ORDERED: Polyethylene Glycol (PEG) 17 Gm Powder PO PRN (13:50)
[2017-08-18 14:00] VITALS: BP 113/75; PULSE 59; RESP 17; O2SAT 96
[2017-08-18 14:05] LABS: INR 3.35 ratio
[2017-08-18 14:41] VITALS: BP 136/71; PULSE 52; RESP 19; O2SAT 98
[2017-08-18 16:25] VITALS: PULSE 58
--- NOTE | 2017-08-18 18:35 | NUR ---
Admit: Patient was brought to [facility] [place] [place] from the ER at 1500. Patient stated that he is not having chest pain currently. Patient stated that after he took 2 NTG at home during his chest pain his chest pain was relieved. Patient was oriented to his call light caregivers and room. His admit questions were completed. 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 Addendum: 08/18/17 at 3094 by MAGUI GEE RN Patients medication rec was completed and reported to .
[2017-08-18] MEDS ORDERED: WARF5TAB7 PO (18:52)
[2017-08-18] MEDS ORDERED: WARF2.5T82 PO (18:52)
[2017-08-18 18:58] LABS: TROPONIN T < 0.010 ug/L (0.0-0.011)
[2017-08-18 19:03] LABS: Creatine Kinase 97 U/L (21-232)
[2017-08-18 20:11] VITALS: BP 129/71; PULSE 55; RESP 18; O2SAT 96
[2017-08-18] MEDS ORDERED: diphenhydrAMINE 25 mg Capsule PO PRN (20:40)
[2017-08-18] MEDS: Omega-3 Fatty Acids 1,000 mg Capsule PO SCH (20:49)
--- NOTE | 2017-08-18 20:51 | PCM.HPMED ---
Subjective Date of Service Aug 18, 2017 Primary Provider: Admitting Physician: Primary Care Physician: Whitney Villarreal MD Attending Physician: Admit Status: From the Emergency Department Chief Complaint: Chest pain History of Present Illness: This is a 71-year-old male with past medical history of CAD status post CABG 5 , hypertension, status post aortic valve replacement placement with mechanical valve for which he is on Coumadin, hyperlipidemia is presenting to the ER complaining of chest pain that has begun this morning at 10:30 AM when he was working on the yard doing light work. He states that the pain is substernal, sharp in nature radiating up into his left sided neck and back, lasted about 45 minutes. It has resolved after he took 3 nitroglycerin. He does not know whether the pain got worse with activity as he had to sit down to take to catch his breath. He states that his CABG happened in 1999. He had some chest pain prior to that but he did not recognize that it was cardiac until he went to see Dr. Lazar who sent him to the ER. That resulted in his CABG back then. Currently he denies any numbness and tingling in his neck or teeth. He had some headache after he took the nitroglycerin but it has resolved by now. Patient is occasionally dizzy if he stands up too quickly but that has not changed today. He was not particularly dyspneic during the chest pain episode. He denies GI symptoms, urine symptoms. In the ER EKG was normal sinus rhythm, troponin was negative, 2011 echo showed 55-60% EF, drop and date ventricular function, trace aortic regurgitation. Patient tells me that he sees Dr. Lazar about couple times a year he does not recall having a recent stress test. Patient's lab work included CBC, CMP that is mainly unremarkable. Upon arriving to the floor his vital signs blood pressure is 112/60, pulse 57, respirations 20, pulse ox 96% on room air. His chest pain has completely resolved. Review of Systems: Complete review of systems performed, pertinent positives and negatives per history of present illness, all other systems reviewed and are negative. 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 External ears without defect. Pupils equal, round, and reactive to light and accommodation. Anicteric sclerae, moist conjunctivae, and no lid lag. Oropharynx free of erythema and cobble stoning with moist mucosa. Neck: Supple with full range of motion. Bilateral jugular venous distension. No bruits. No lymphadenopathy or thyromegaly. Cardiovascular: Regular rate and rhythm with distinctive mechanical valve click , soft systolic murmur murmurs, no rubs, or gallops appreciated Pulmonary: Clear to auscultation bilaterally with no crackles, wheezes, or rhonchi. Normal respiratory effort with no use of accessory muscles. Abdomen: Bowel tones present. Soft, mildly tender diffusely, nondistended. No hepatosplenomegaly or masses appreciated. Extremities: No clubbing, cyanosis, edema, or lymphadenopathy appreciated. Skin: Normal temperature, turgor, and texture; no rash, ulcers, or subcutaneous nodules appreciated. Neurological: Cranial nerves grossly intact. Normal muscle strength, tone, and bulk. Reflexes, coordination, and sensory function within normal limits. No known gait impairment. Psychiatric: Normal mood and affect. Alert and oriented to person, place, and time. Vascular: Palpable pedal pulses Lab and Diagnostics Result Diagram: 08/18/17 1209 08/18/17 1209 X-Rays, CTs and MRIs PROCEDURE: X-RAY CHEST ONE VIEW, PORTABLE ([id number]) INDICATIONS: CHEST PAIN IMPRESSION: Limited portable chest examination, without a significant cardiopulmonary abnormality identified. As clinically appropriate, a short-term followup chest series (with PA and lateral views) performed in deep inspiration is suggested for further evaluation. Postoperative changes are seen. Dictated by: Gene Euceda M.D. on 08/18/2017 at 12:25 Approved by: Gene Euceda M.D. on 08/18/2017 at 12:26 Assessment & Plan Acute chest pain present on admission -- Resolved by the time he came to the ER/floor -- Telemetry monitoring -- Trend cardiac enzymes -- Morphine 1 mg every 4 hours when necessary for dyspnea and pain -- Oxygen as needed -- Nitroglycerin sublingual when necessary -- Aspirin daily -- Continue Coumadin for anticoagulation -- Cardiac echo, nuclear medicine Cardiolite stress test Hypertension chronic presumed stable -- Continue home medications atenolol, prazosin Hyperlipidemia chronic presumed stable -- Continue home statin Depression chronic presumed stable -- Patient has no home medications Chronic GERD presumed stable -- Continue home medication High risk medications: IV morphine, Coumadin CODE STATUS: Full code Alternate decision-maker: followed by son Pain Evaluation: Adequate Pain Control Resuscitation Status: CPR: Attempt Resuscitation Time spent 45 minutes Herminia Matamoros DO Aug 18, 2017 13:41
--- NOTE | 2017-08-18 21:46 | PCM.CONPHA ---
Subjective Chest pain Reason for Pharmacy Consult: Anticoagulation Management Objective Vital Signs Date Time Temp Pulse Resp B/P Pulse Ox O2 Delivery O2 Flow Rate FiO2 08/18/17 20:11 36.7 55 18 129/71 96 Room Air 08/18/17 16:25 58 08/18/17 14:41 36.6 52 19 136/71 98 Room Air 08/18/17 14:00 59 17 113/75 96 Room Air 08/18/17 12:42 57 20 112/60 96 Room Air 08/18/17 12:07 37.0 57 15 93/58 97 Room Air Weight (Kilograms): 81.400 Height (Feet): 5 Height (Inches): 8.00 Test 08/18/17 12:09 08/18/17 18:18 White Blood Count 4.8th/mm3 (3.8-10.1) Red Blood Count 4.12mil/mm3 (4.40-5.80) Hemoglobin 12.9g/dL (13.8-17.2) Hematocrit 40.1% (41.0-50.0) Mean Corpuscular Volume 97.3fL (81-100) Mean Corpuscular Hemoglobin 31.3pg (27.0-35.0) Mean Corpuscular Hemoglobin Concent 32.2% (32.0-37.0) Red Cell Distribution Width 13.8% (12.3-15.4) Platelet Count 163bil/L (150-400) Neutrophils (%) (Auto) 59.3% (40-74) Lymphocytes (%) (Auto) 23.6% (14-46) Monocytes (%) (Auto) 10.5% (4-12) Eosinophils (%) (Auto) 4.8% (0-5) Basophils (%) (Auto) 1.4% (0-3) Prothrombin Time 36.7sec (8.1-12.5) Prothromb Time International Ratio 3.35ratio Activated Partial Thromboplast Time 43.7sec (22.8-33.0) Sodium Level 142mEq/L (134-144) Potassium Level 4.5mEq/L (3.5-5.2) Chloride Level 106mEq/L (97-108) Carbon Dioxide Level 23mmol/L (18-29) Blood Urea Nitrogen 16mg/dL (8-27) Creatinine 0.99mg/dL (0.76-1.27) Estimat Glomerular Filtration Rate 79mL/min (>59) Glucose Level 104mg/dL (60-99) Calcium Level 8.5mg/dL (8.5-10.1) Magnesium Level 1.8mg/dL (1.6-2.6) Total Bilirubin 0.4mg/dL (0.0-1.2) Aspartate Amino Transf (AST/SGOT) 23U/L (0-50) Alanine Aminotransferase (ALT/SGPT) 12U/L (0-44) Alkaline Phosphatase 76U/L (25-160) Pro-B-Type Natriuretic Peptide 738.8pg/mL (0-376) Total Protein 6.7g/dL (6.4-8.4) Albumin 3.8g/dL (3.4-5.0) Total Creatine Kinase 97U/L (21-232) Creatine Kinase MB 1.9ng/mL (0.0-10.4) Creatine Kinase MB % % (0.0-5.0) Troponin T < 0.010ug/L (0.0-0.011) Assessment/Plan Assessment/Plan WARFARIN MANAGEMENT A\ 71 YO M ADMITTED FOR UNSTABLE ANGINA WITH HISTORY OF MECHANICAL AORTIC VALVE HOME DOSE WARFARIN 2.5mg TUE,MON; 5mg ALL OTHER DAYS GOAL INR=2-3 CURRENT INR=3.35 HCT=40.1 OQC=384 CITALOPRAM CAN INCREASE RISK OF BLEEDING, PANTOPRAZOLE AND ATENOLOL CAN INCREASE INR, ROSUVASTATIN CAN INCREASE RISK OF BLEEDING AND INR P\ INR IS ELEVATED SO WILL HOLD WARFARIN TONIGHT AND CHECK AN INR WITH AM LABS. Floyd Moore [facility] Aug 18, 2017 21:46
[2017-08-19] VITALS (8 sets, daily range): BP systolic 117–134; BP diastolic 63–75; PULSE 51–69; RESP 18–20; O2SAT 94–97
[2017-08-19 01:17] LABS: Creatine Kinase 95 U/L (21-232)
[2017-08-19 06:14] LABS: INR 2.71 ratio
[2017-08-19] MEDS: Omega-3 Fatty Acids 1,000 mg Capsule PO SCH ×2 (08:19→20:31)
[2017-08-19] MEDS: Pantoprazole 20 mg ER24 Tablet PO SCH ×2 (08:24→17:10)
--- NOTE | 2017-08-19 08:45 | NUR ---
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 Addendum: 08/19/17 at 1137 by CHANDANA ARANGO RN Pt back on unit, denies any pain/discomfort. On RA.
--- NOTE | 2017-08-19 12:05 | DRSVH ---
[facility] [address] [place] [address] Echocardiogram Report Name: CHIARA CASANOVA Date : 08/18/2017 Height: 68 in Hospital Exam Location: [facility] Weight: 185 lb Gender: Male BSA: 2.0 m2 : 1945 Age: 71 yrs BP: 112/60 mmHg Reason For Study: ANGINA Ordering Physician: Performed By: Josep Whipple Interpretation Summary The left ventricle is mildly dilated. Left ventricular systolic function is low normal. The ejection fraction is estimated to be 50-55%. LVEF has slightly decreased. There is mild hypokinesis along the inferior wall and part of the inferolateral wall. Inferior wall motion abnormality is new since prior study. Assessment of diastolic parameters indicates a relaxation abnormality of the left ventricle, consistent with normal filling pressures. The right ventricle is mildly dilated. Right ventricular systolic function is mildly reduced. The right ventricular systolic pressure is estimated at 23 mmHg assuming a right atrial pressure of 3 mm Hg. The left atrium is moderately dilated. The right atrium is severely dilated. There is a mechanical aortic valve. The prosthetic aortic valve is well- seated. The gradients through the prosthetic aortic valve are within the normal range for this type of valve. There is trace aortic regurgitation. There is no other significant valvular heart disease. The ascending aorta is mildly enlarged. Procedure: A two-dimensional transthoracic echocardiogram with color flow and Doppler was performed. The study quality was technically difficult. Comparison is made with the echocardiogram of 02/16/12. The patient was in normal sinus rhythm during the exam. The patient had occasional PACs during the exam. Left Ventricle: There is normal left ventricular wall thickness. The left ventricle is mildly dilated. Left ventricular systolic function is low normal. The ejection fraction is estimated to be 50-55%. There is mild hypokinesis along the inferior wall and part of the inferolateral wall. Assessment of diastolic parameters indicates a relaxation abnormality of the left ventricle, consistent with normal filling pressures. Right Ventricle: The right ventricle is mildly dilated. Right ventricular systolic function is mildly reduced. Atria: The left atrium is moderately dilated. The right atrium is severely dilated. The interatrial septum is intact with no evidence for an atrial septal defect. Mitral Valve: The mitral valve is normal in structure and function. There is mild mitral regurgitation. Aortic Valve: There is a mechanical aortic valve. The prosthetic aortic valve is well-seated. The gradients through the prosthetic aortic valve are within the normal range for this type of valve. There is trace aortic regurgitation. Tricuspid Valve: The tricuspid valve is normal in structure and function. There is mild tricuspid regurgitation. The right ventricular systolic pressure is estimated at 23 mmHg assuming a right atrial pressure of 3 mm Hg. Pulmonic Valve: The pulmonic valve is not well visualized. There is mild pulmonic regurgitation. There is no other significant valvular heart disease. Great Vessels: The aortic root is normal size. The ascending aorta is mildly enlarged. The pulmonary artery is normal size. The IVC is of normal diameter and collapses greater than 50% with a sniff. This suggests a low right atrial pressure of 3 mm Hg. Pericardium/ Pleura There is no pericardial effusion. There is no pleural effusion. MMode/2D Measurements & Calculations LVIDd: 5.9 cm LA dimension: 4.2 cm LVIDs: 4.6 cm FS: 23.0 % LA A2 area: 28.8 cm EPSS: 1.2 cm LA A4 area: 24.9 cm IVSd: 1.0 cm LA length (vol): 6.6 cm LVPWd: 0.77 cm LA vol: 91.7 ml LA vol index: 46.4 ml/m IVC diam: 2.1 cm RA long axis: 5.5 cm LVOT diam: 2.1 cm RA area: 26.0 cm Ao root diam: 3.4 cm RA vol: 104.2 ml asc Aorta Diam: 3.5 cm RA : 52.7 ml/m2 LV cabrera. diameter/BSA (cm/m^2): 3.0 LV sys. diameter/BSA (cm/m^2): 2.3 RVD1 (basal): 4.1 cm RVD2 (mid): 4.6 cm Doppler Measurements & Calculations Ao V2 max: 144.2 cm/sec MV E max chas: 43.9 cm/sec Ao max P.3 mmHg MV A max chas: 59.4 cm/sec Ao mean P.1 mmHg LVOT Max Chas: 114.9 cm/sec CASA(I,D): 2.7 cm sev ratio: 0.77 MV E/A: 0.74 TR max chas: 221.9 cm/sec Med Peak E' Chas: 5.8 cm/sec TR max P.7 mmHg E/E' med: 7.6 PA V2 max: 84.5 cm/sec Lat Peak E' Chas: 12.4 cm/sec PA mean P.5 mmHg E/E' lat: 3.5 PA Accel Time: 0.10 sec E/e' average: 5.6 Pulm A Revs Dur: 0.11 sec MV dec time: 0.23 sec Ao V2 mean: 111.5 cm/sec Ao V2 VTI: 36.3 cm CASA(V,D): 2.8 cm2 LV V1 max P.3 mmHg PA V2 mean: 58.9 cm/sec LV V1 VTI: 28.0 cm PA pr(Accel): 29.1 mmHg CASA indexed to BSA (cm^2/m^2): 1.4 Reading Physician:PM
--- NOTE | 2017-08-19 18:48 | NUR ---
Activity/px Pt amb ind in room and made multiple trips around the hallway. Continues to deny any CP/discomfort at this time. Tele remains in place, SR 50-60's. Bed in lowest, locked position and call light in reach.
--- NOTE | 2017-08-19 19:41 | NUR ---
activity/HR: pt up to the BR, pt's HR up to the 140 and sustained for about 5min. Possible Aflutter per ekg monitor tech, will keep RN updated. EKG ordered and will hold for now, HR back to SR 56. during this time pt reported, mild Chest discomfort, and stated he could feed his heart racing. at this time pt denies CP, SOB, and states he feel well. will continue to monitor.
--- NOTE | 2017-08-19 20:17 | PCM.PNMED ---
Subjective Date of Service Aug 19, 2017 Subjective Patient is seen and examined. He is in good spirits, he had no chest pain, shortness of breath, no back pain overnight Exam Vital Signs Vital Sign - Last Date Time Temp Pulse Resp B/P Pulse Ox O2 Delivery O2 Flow Rate FiO2 08/19/17 08:23 36.8 55 19 128/71 95 Room Air Intake and Output 08/18/17 08/18/17 08/19/17 Cumulative From/Thru 15:00 23:00 07:00 08/18/17 12:07 - 08/19/17 06:28 Intake Total 200 ml 200 ml Output Total 675 ml 675 ml Balance -475 ml -475 ml Intake Oral 200 ml 200 ml Output Urine Total 675 ml 675 ml # Voids 2 2 Exam General: No acute distress appropriately interactive HEENT: Normocephalic, atraumatic. E Neck: Supple with full range of motion. Bilateral jugular venous distension. No bruits. No lymphadenopathy or thyromegaly. Cardiovascular: Regular rate and rhythm with distinctive mechanical valve click , soft systolic murmur murmurs, no rubs, or gallops appreciated Pulmonary: Clear to auscultation bilaterally with no crackles, wheezes, or rhonchi. Normal respiratory effort with no use of accessory muscles. Abdomen: Bowel tones present. Soft, mildly tender diffusely, nondistended. No hepatosplenomegaly or masses appreciated. Extremities: No clubbing, cyanosis, edema, or lymphadenopathy appreciated. Neurological: No focal deficits Psychiatric: Normal mood and affect. Alert and oriented to person, place, and time. Vascular: Palpable pedal pulses IVs and Medications Medications Reviewed: Medications were reviewed in detail Lab and Diagnostics Result Diagram: 08/18/17 1209 08/19/17 0535 X-Rays, CTs and MRIs PROCEDURE: X-RAY CHEST ONE VIEW, PORTABLE ([id number]) INDICATIONS: CHEST PAIN IMPRESSION: Limited portable chest examination, without a significant cardiopulmonary abnormality identified. As clinically appropriate, a short-term followup chest series (with PA and lateral views) performed in deep inspiration is suggested for further evaluation. Postoperative changes are seen. Dictated by: Gene Euceda M.D. on 08/18/2017 at 12:25 Approved by: Gene Euceda M.D. on 08/18/2017 at 12:26 Cardiac Echo Impressions 08/19/17 Echo Interpretation Summary The left ventricle is mildly dilated. Left ventricular systolic function is low normal. The ejection fraction is estimated to be 50-55%. LVEF has slightly decreased. There is mild hypokinesis along the inferior wall and part of the inferolateral wall. Inferior wall motion abnormality is new since prior study. Assessment of diastolic parameters indicates a relaxation abnormality of the left ventricle, consistent with normal filling pressures. The right ventricle is mildly dilated. Right ventricular systolic function is mildly reduced. The right ventricular systolic pressure is estimated at 23 mmHg assuming a right atrial pressure of 3 mm Hg. The left atrium is moderately dilated. The right atrium is severely dilated. There is a mechanical aortic valve. The prosthetic aortic valve is well- seated. The gradients through the prosthetic aortic valve are within the normal range for this type of valve. There is trace aortic regurgitation. There is no other significant valvular heart disease. The ascending aorta is mildly enlarged. Assessment & Plan Acute chest pain present on admission -- Resolved by the time he came to the ER/floor -- Telemetry monitoring: No overnight events reported -- cardiac enzymes are negative overnight -- Morphine 1 mg every 4 hours when necessary for dyspnea and pain -- Oxygen as needed -- Nitroglycerin sublingual when necessary -- Aspirin daily -- Continue Coumadin for anticoagulation -- Cardiac echo, nuclear medicine Cardiolite stress test performed this a.m. -- Echo: "The ejection fraction is estimated to be 50-55%. LVEF has slightly decreased. There is mild hypokinesis along the inferior wall and part of the inferolateral wall. Inferior wall motion abnormality is new since prior study" -- Patient is asked to undergo a second stress test tomorrow a.m. -- Nothing by mouth diet after midnight Hypertension chronic presumed stable -- Continue home medications atenolol, prazosin Hyperlipidemia chronic presumed stable -- Continue home statin Depression chronic presumed stable -- Patient has no home medications Chronic GERD presumed stable -- Continue home medication High risk medications: IV morphine, Coumadin CODE STATUS: Full code Alternate decision-maker: followed by son Pain Evaluation: Adequate Pain Control Resuscitation Status: CPR: Attempt Resuscitation Time spent 25 min Herminia Matamoros DO Aug 19, 2017 08:42
[2017-08-19] MEDS: Albuterol-Ipratropium 3 mL Inhalation Solution NEB SCH (21:00)
[2017-08-20 00:32] VITALS: BP 105/66; PULSE 63; RESP 18; O2SAT 96
[2017-08-20 05:49] VITALS: BP 116/64; PULSE 63; RESP 18; O2SAT 95
[2017-08-20 05:56] LABS: INR 1.89 ratio
[2017-08-20 06:28] VITALS: PULSE 63
[2017-08-20 07:30] VITALS: PULSE 60; RESP 18; O2SAT 95
[2017-08-20] MEDS: Albuterol-Ipratropium 3 mL Inhalation Solution NEB SCH (07:30)
[2017-08-20] MEDS: Omega-3 Fatty Acids 1,000 mg Capsule PO SCH (08:07)
[2017-08-20] MEDS: Pantoprazole 20 mg ER24 Tablet PO SCH (08:07)
[2017-08-20] MEDS ORDERED: Albuterol-Ipratropium 3 mL Inhalation Solution NEB PRN (08:15)
[2017-08-20 09:08] VITALS: BP 106/73; PULSE 64; RESP 18; O2SAT 96
--- NOTE | 2017-08-20 09:20 | NUR ---
Social Work- Initial Assessment Data: See Initial Assessment for additional information. Pt is a 71 year old male admitted [facility] for unstable angina per H&P. Pt's insurance is [place] and [facility] Part A and B. Pt's PCP is Whitney Villarreal MD at [facility]. Pt's readmit risk score is not listed at this time. SW met with pt at bedside to discuss d/c planning, SW role explained. Pt alert and oriented x3. Pt resides in [place] with his in a single story home with three steps to enter. Pt's capacity for self-care assessed. Pt's designated d/c planning contact is Adri Mares, . Pt uses no DME at baseline, drives. Pt is independent with ADLs and self-care. Pt has no HH or SNF history and no LTC insurance. [facility], if he has new medications they will need to be [facility]. Pt is likely to d/c home with his son to transport via POV. SW provided d/c planning checklist and wrote phone number and plan on whiteboard. SW will continue to follow for d/c planning needs. Assessment: Pt who is independent with ADLs and self-care Plan: Pt is likely to d/c home with his son to transport via POV. SW will continue to follow for d/c planning needs. BI Shin Addendum: 08/20/17 at 0924 by MICHAEL CARRERO SS Amended: Links added.
[2017-08-20 13:46] VITALS: BP 129/69; PULSE 58; RESP 18; O2SAT 97
--- NOTE | 2017-08-20 14:41 | PCM.DIMED ---
Discharge Instructions Date of Service Aug 20, 2017 Dates of Hospitalization Aug 18, 2017 at 14:04 Discharge Diagnosis Discharge Diagnosis Stable Angina, CAD, Hypertension, Mechanical Aortic Valve Medication Instructions Additional med instructions Please take nitro PRN for angina pain. If symptoms worsen, please return to ED Diet Discharge Diet: Heart Healthy Activity Discharge Activity: No restrictions Call your provider Call your provider for: Fever or Chills, Shortness of breath, Bleeding, Chest pain, Vomitting, Excessive diarrhea, Weakness (unilateral), Other Patient Instructions Follow-up plan F/U with Dr. Serna , your rand sewer in one week. Repeat INR check in one week Herimnia Matamoros DO Aug 20, 2017 14:41
--- NOTE | 2017-08-20 14:48 | PCM.DC.MED ---
Discharge Summary Date of Service Aug 20, 2017 Dates of Hospitalization Date of Hospital Admission Aug 18, 2017 at 14:04 Date of Discharge: Aug 20, 2017 Providers: Admitting Physician: Herminia Matamoros DO Primary Care Physician: Whitney Villarreal MD Attending Physician: Herminia Matamoros DO Diagnosis at Time of Discharge Diagnosis at Time of Discharge Stable Angina, CAD, Hypertension, Mechanical Aortic Valve Consultations Dr. Rodriguez, Cardiology Procedures XRay, CTs & MRIs PROCEDURE: X-RAY CHEST ONE VIEW, PORTABLE ([id number]) INDICATIONS: CHEST PAIN IMPRESSION: Limited portable chest examination, without a significant cardiopulmonary abnormality identified. As clinically appropriate, a short-term followup chest series (with PA and lateral views) performed in deep inspiration is suggested for further evaluation. Postoperative changes are seen. Dictated by: Gene Euceda M.D. on 08/18/2017 at 12:25 Approved by: Gene Euceda M.D. on 08/18/2017 at 12:26 Cardiac Echo Impression 08/19/17 Echo Interpretation Summary The left ventricle is mildly dilated. Left ventricular systolic function is low normal. The ejection fraction is estimated to be 50-55%. LVEF has slightly decreased. There is mild hypokinesis along the inferior wall and part of the inferolateral wall. Inferior wall motion abnormality is new since prior study. Assessment of diastolic parameters indicates a relaxation abnormality of the left ventricle, consistent with normal filling pressures. The right ventricle is mildly dilated. Right ventricular systolic function is mildly reduced. The right ventricular systolic pressure is estimated at 23 mmHg assuming a right atrial pressure of 3 mm Hg. The left atrium is moderately dilated. The right atrium is severely dilated. There is a mechanical aortic valve. The prosthetic aortic valve is well- seated. The gradients through the prosthetic aortic valve are within the normal range for this type of valve. There is trace aortic regurgitation. There is no other significant valvular heart disease. The ascending aorta is mildly enlarged. Brief History This is a 71-year-old male with past medical history of CAD status post CABG 5 , hypertension, status post aortic valve replacement placement with mechanical valve for which he is on Coumadin, hyperlipidemia is presenting to the ER complaining of chest pain that has begun this morning at 10:30 AM when he was working on the yard doing light work. He states that the pain is substernal, sharp in nature radiating up into his left sided neck and back, lasted about 45 minutes. It has resolved after he took 3 nitroglycerin. He does not know whether the pain got worse with activity as he had to sit down to take to catch his breath. He states that his CABG happened in 1999. He had some chest pain prior to that but he did not recognize that it was cardiac until he went to see Dr. Lazar who sent him to the ER. That resulted in his CABG back then. Currently he denies any numbness and tingling in his neck or teeth. He had some headache after he took the nitroglycerin but it has resolved by now. Patient is occasionally dizzy if he stands up too quickly but that has not changed today. He was not particularly dyspneic during the chest pain episode. He denies GI symptoms, urine symptoms. In the ER EKG was normal sinus rhythm, troponin was negative, 2012 echo showed 55-60% EF, drop and date ventricular function, trace aortic regurgitation. Patient tells me that he sees Dr. Lazar about couple times a year he does not recall having a recent stress test. Patient's lab work included CBC, CMP that is mainly unremarkable. Upon arriving to the floor his vital signs blood pressure is 112/60, pulse 57, respirations 20, pulse ox 96% on room air. His chest pain has completely resolved. Hospital Course Acute chest pain present on admission -- Resolved by the time he came to the ER/floor -- Telemetry monitoring: No overnight events reported -- cardiac enzymes are negative overnight -- Morphine 1 mg every 4 hours when necessary for dyspnea and pain -- Oxygen as needed -- Nitroglycerin sublingual when necessary -- Aspirin daily -- Continued Coumadin for anticoagulation -- Cardiac echo, nuclear medicine Cardiolite stress test performed this a.m. -- Echo: "The ejection fraction is estimated to be 50-55%. LVEF has slightly decreased. There is mild hypokinesis along the inferior wall and part of the inferolateral wall. Inferior wall motion abnormality is new since prior study" -- Patient is asked to undergo a second stress test 08/20 a.m. -- Discussed case with Dr. Rodriguez who reviewed patient's case. States patient does have a small reversible defect, no need for urgent catheterization, patient has excellent exercise capacity. Close f/u by his literature teacher is recommended. -- Patient is asked to continue nitro PRN for stable angina and f/u with Dr. Serna as o/p. Mechanical AV chronic stable -- F/U with INR check in one week Hypertension chronic presumed stable -- Continue home medications atenolol, prazosin Hyperlipidemia chronic presumed stable -- Continue home statin Depression chronic presumed stable -- Patient has no home medications Chronic GERD presumed stable -- Continue home medication High risk medications: IV morphine, Coumadin CODE STATUS: Full code Alternate decision-maker: followed by son Exam Vital Signs (Last) Date Time Temp Pulse Resp B/P Pulse Ox O2 Delivery O2 Flow Rate FiO2 08/20/17 13:46 36.7 58 18 129/69 97 Room Air Exam General: NAD HEENT: NCAT Heart: RRR, mechanical AV valve click, soft systolic murmur Lungs: CTA, no crackles or wheezes Neck: Deressed area above angle of fadi Abd: Soft, Non distended Ext: No edema Neuro: No focal deficits Psych: affect pleasant, mood neutral Test 08/18/17 12:09 08/19/17 00:21 08/19/17 05:35 08/20/17 05:25 White Blood Count 4.8th/mm3 (3.8-10.1) Red Blood Count 4.12mil/mm3 (4.40-5.80) Hemoglobin 12.9g/dL (13.8-17.2) Hematocrit 40.1% (41.0-50.0) Mean Corpuscular Volume 97.3fL (81-100) Mean Corpuscular Hemoglobin 31.3pg (27.0-35.0) Mean Corpuscular Hemoglobin Concent 32.2% (32.0-37.0) Red Cell Distribution Width 13.8% (12.3-15.4) Platelet Count 163bil/L (150-400) Neutrophils (%) (Auto) 59.3% (40-74) Lymphocytes (%) (Auto) 23.6% (14-46) Monocytes (%) (Auto) 10.5% (4-12) Eosinophils (%) (Auto) 4.8% (0-5) Basophils (%) (Auto) 1.4% (0-3) Activated Partial Thromboplast Time 43.7sec (22.8-33.0) Magnesium Level 1.8mg/dL (1.6-2.6) Pro-B-Type Natriuretic Peptide 738.8pg/mL (0-376) Total Creatine Kinase 95U/L (21-232) Creatine Kinase MB 1.8ng/mL (0.0-10.4) Creatine Kinase MB % % (0.0-5.0) Troponin T 0.010ug/L (0.0-0.011) Sodium Level 140mEq/L (134-144) Potassium Level 4.2mEq/L (3.5-5.2) Chloride Level 104mEq/L (97-108) Carbon Dioxide Level 29mmol/L (18-29) Blood Urea Nitrogen 19mg/dL (8-27) Creatinine 0.77mg/dL (0.76-1.27) Estimat Glomerular Filtration Rate 105mL/min (>59) Glucose Level 94mg/dL (60-99) Calcium Level 8.7mg/dL (8.5-10.1) Total Bilirubin 0.6mg/dL (0.0-1.2) Aspartate Amino Transf (AST/SGOT) 24U/L (0-50) Alanine Aminotransferase (ALT/SGPT) 12U/L (0-44) Alkaline Phosphatase 70U/L (25-160) Total Protein 6.3g/dL (6.4-8.4) Albumin 4.0g/dL (3.4-5.0) Prothrombin Time 20.5sec (8.1-12.5) Prothromb Time International Ratio 1.89ratio Discharge Medications Discharge Medications Acetaminophen/Diphenhydramine (Tylenol Pm Ex-Strength Caplet) 500 Mg-25 Mg Tablet 1 EACH PO HS (Reported) Atenolol (Atenolol) 50 Mg Tablet 50 MG PO DAILY (Reported) Calcium Carbonate/Vitamin D3 (Calcium 600 + Vit D Tablet) 1 Each Tablet 1 EACH PO DAILY (Reported) Citalopram Hydrobromide (Celexa) 20 Mg Tablet 20 MG PO DAILY Prescribed by: KATHY AVILA MD Cyanocobalamin (Vitamin B-12) (Vitamin B-12) 1,000 Mcg Tab.subl 1,000 MCG SL DAILY (Reported) Multivitamin with Minerals (Totalday Multiple) 1 Each Tablet.er 1 EACH PO DAILY (Reported) Bradford-3 Fatty Acids (Fish Oil) 500 Mg Capsule.dr 1,000 MG PO BID (Reported) Omeprazole (Omeprazole) 20 Mg Capsule.dr 20 MG PO BID (Reported) Prazosin (Prazosin) 2 Mg Capsule 2 MG PO HS (Reported) Rosuvastatin Calcium (Rosuvastatin Calcium) 40 Mg Tablet 40 MG PO DAILY ( Reported) Warfarin Sodium (Warfarin Sodium) 2.5 Mg Tablet 2.5 MG PO mon,Mon (Reported) Warfarin Sodium (Warfarin Sodium) 5 Mg Tablet 5 MG PO mon,wed,,sat,sun ( Reported) Additional med instructions Please take nitro PRN for angina pain. If symptoms worsen, please return to ED Followup Plan Follow-up plan F/U with Dr. Serna , your literature teacher in one week. Repeat INR check in one week Discharge Diet: Heart Healthy Discharge Activity: No restrictions Time spent 35 min Herminia Matamoros DO Aug 20, 2017 14:48
--- NOTE | 2017-08-20 15:30 | DRSVH ---
Caution: Report not yet finalized and possibly incomplete! PROCEDURE: TWO DAY STRESS TEST REFERRING PHYSICIAN: Dr. Matamoros INDICATIONS: Mr. Mares is a 71-year-old gentleman presenting to [facility] with sympto ms of angina-like chest discomfort. He has had no recurrent symptoms since he presented on August 18 and his troponin studies were negative. A nuclear cardiac stress study is performed to evaluate significant recurrent or residual ischemia. This gentleman has a history of previous coronary bypass graft surgery and aortic valve replacement. COMPARISON: None. STRESS TEST: This patient was exercised according to a regular Power protocol for a total of 7-1/2 m inutes, achieving a peak heart rate of 129 beats per minute with subtle, very slight discomfort in hi s chest. He had a somewhat blunted heart rate response but a normal blood pressure response to exerc ise. Baseline 12-lead EKG is unremarkable. He did not develop any diagnostic ST segment changes wit h exercise. PROCEDURE: This gentleman received 22.5 mCi of technetium-99 tetrofosmin for the stress portion of t he examination. He then returned the next day for the resting portion of the examination for which h e received 23.4 mCi. FINDINGS: 1. Raw Data: The raw data imaging shows overall good image quality. No significant source of artif act or interference was identified. 2. Quantitative Gated SPECT Imaging: Gated images demonstrate a normal-size left ventricle with an end diastolic volume of 107 cc. Overall ejection fraction is 58%. There appears to be a fixed perfu toño abnormality involving the base of the inferior wall with decreased contractility in this region. No other regional wall motion abnormalities are identified. 3. Quantitative Perfusion SPECT Imaging: Myocardial perfusion imaging during stress demonstrates a small to moderate area of apical hypoperfusion. There is a fixed perfusion abnormality involving the base of the inferior wall and inferior septum on both stress and rest images. Resting images show n ormal perfusion to the left ventricular apex suggesting a small area of ischemia involving the apex i n the distal LAD distribution. IMPRESSION: Abnormal nuclear cardiac stress study: A. Excellent exercise capacity with very slight anginal discomfort at peak exercise without diagnost ic electrocardiogram changes. B. Focal area of basal inferior akinesis consistent with previous basal inferior infarct. Otherwise normal left ventricular chamber size and ejection fraction. C. In addition to a fixed basal inferior and inferior septal perfusion abnormality, there is a small area of mild reversible ischemia involving the apex in the distribution of the distal left anterior descending. Clinical correlation is suggested. Dictated by: Ric Rodriguez M.D. on 08/20/2017 at 13:20 Transcribed by: BISMARK on 08/20/2017 at 18:30
--- NOTE | 2017-08-20 15:40 | NUR ---
Discharge Pt given discharge instructions. Explained all contents. Pt does not have any questions at this time. Pt getting dressed and awaiting transportation.
--- NOTE | 2017-08-25 11:27 | PCM.ADCARE ---
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 Objective: Patient appears to have good exercise capability based on his daily routine. He is very cognizant of his chest pain symptoms and he has done the right thing in coming to the hospital, he seems to have taken all appropriate steps. He has not had a stress in awhile however and it is unclear what his CV status currently is. Plan: We will arrange for a stress test for patient, which should help determine what f/u management or treatments he will need CODE STATUS: DNR/DNI per patient ADM Time Spent Adv.Care Planning: Total time spent [id number] and education directly related to advanced planning 30 min Adv. Care Plan Documenation: As above and also as documented in H&P Herminia Matamoros DO Aug 20, 2017 23:27
== END 2017-08-20 16:07 | disposition home or self-care (01) ==
LOC: SED 11:40 → EDBD 11:40 → MPC 14:04
PROVIDERS: ADMIT Family Medicine; ATTEND Family Medicine
DX: I25.118 Atherosclerotic heart disease of native coronary artery with other forms of angina pectoris (principal); I10 Essential (primary) hypertension; K21.9 Gastro-esophageal reflux disease without esophagitis; E78.5 Hyperlipidemia, unspecified; Z95.2 Presence of prosthetic heart valve; F32.9 Major depressive disorder, single episode, unspecified; Z95.1 Presence of aortocoronary bypass graft; Z79.01 Long term (current) use of anticoagulants
CPT/HCPCS: 36415; 71010; 78452; 80053; 82550; 82553; 83735; 83880; 84484; 85025; 85610; 85730; 93005; 93017; 94799; 99285; A9502; C8929; G0378; Q9957